=== PATIENT | female | born 1965 | race Caucasian/White ===

== ENCOUNTER 2017-11-18 21:56 | Emergency (ER) | payer OTHER ==
[~2017-11-18] VITALS: Ht 172.7 cm; Wt 99.8 kg
[~2017-11-18 21:56] MED LIST: ASPI81CH PO; Aspirin EC81 MG PO; CARV6.25 PO; Coreg12.5 MG PO; FURO20 PO; GLIM2 PO; LISI20 PO; Lasix20 MG PO; NITR.4SL SL; Pravastatin Sod40 MG PO; Prinivil10 MG PO
[2017-11-18] MEDS ORDERED: ALBU90OI (22:07)
[2017-11-18] MEDS ORDERED: Lasix20 MG PO (23:10)
[2017-11-18] MEDS ORDERED: Prinivil10 MG PO (23:10)
[2017-11-18] MEDS ORDERED: ALBU90OI PO (23:10)
[2018-08-12] MEDS ORDERED: CLOP75 PO (02:31)
[2018-08-12] MEDS ORDERED: ASPI81CH PO (02:31)
[2018-08-12] MEDS ORDERED: POTCHL20ER PO (02:32)
== END 2017-11-18 23:17 | disposition home or self-care (01) ==
LOC: ER 21:56
DX: Z76.0 Encounter for issue of repeat prescription (principal); Z79.899 Other long term (current) drug therapy; Z79.82 Long term (current) use of aspirin; I11.0 Hypertensive heart disease with heart failure; I50.9 Heart failure, unspecified; E11.9 Type 2 diabetes mellitus without complications; F17.200 Nicotine dependence, unspecified, uncomplicated
CPT/HCPCS: 99281

== ENCOUNTER 2017-12-15 11:47 | Emergency (ER) | payer OTHER ==
[~2017-12-15] VITALS: Ht 172.7 cm; Wt 90.7 kg
[~2017-12-15 11:47] MED LIST changes: +ALBU90OI; +ALBU90OI PO
[2017-12-15] MEDS ORDERED: CARV6.25 PO (12:27)
[2017-12-15] MEDS ORDERED: LISI20 PO (12:28)
[2017-12-15 12:38] LABS: BASOPHILS ABSOLUTE AUTO 0.09 K/mm3 (0.00-0.23); BASOPHILS PERCENT AUTO 1 % (0-2); EOSINOPHILS PERCENT AUTO 7 % (0-6); Hematocrit 42.2 % (33.0-51.0); IMMATURE GRAN ABSOLUTE AUTO 0.03 K/mm3 (0.00-0.10); IMMATURE GRAN PERCENT AUTO 0 % (0-1); LYMPHOCYTES ABSOLUTE AUTO 2.89 K/mm3 (0.84-5.20); LYMPHOCYTES PERCENT AUTO 32 % (21-46); MONOCYTES ABSOLUTE AUTO 0.44 K/mm3 (0.16-1.47); MONOCYTES PERCENT AUTO 5 % (4-13); Mean Corpuscular HGB Conc 35.5 g/dL (31.5-36.5); Mean Corpuscular Volume 82 fL (80-100); Mean Platelet Volume 10.9 fL (9.1-12.4); NEUTROPHILS ABSOLUTE AUTO 5.07 K/mm3 (1.96-9.15); NEUTROPHILS PERCENT AUTO 56 % (41-73); Platelet Count 240 K/mm3 (150-400); RDW Coefficient Variation 13.8 % (11.7-14.2); RDW Standard Deviation 40.9 fL (35.1-46.3); Red Blood Cell Count 5.18 M/mm3 (3.80-5.20); White Blood Cell Count 9.12 K/mm3 (4.00-11.30)
[2017-12-15 13:33] LABS: Alanine Aminotransfer (ALT/SGP 41 U/L (12-78); Albumin, Blood 3.3 g/dL (3.4-5.0); Albumin/Globulin Ratio 0.8 (0.8-1.8); Alk Phos 137 U/L (50-136); Anion Gap 14 mmol/L (6-16); Aspartate Aminotrans (AST/SGOT 20 U/L (12-37); Bilirubin, Total 0.6 mg/dL (0.1-1.0); Blood Urea Nitrogen 10 mg/dL (8-24); Bun/Creatinine Ratio 16.9 (12.0-20.0); CO2, Blood 22 mmol/L (21-32); Calcium, Blood 8.3 mg/dL (8.5-10.1); Chloride, Blood 97 mmol/L (98-108); Creatinine, Blood 0.59 mg/dL (0.40-1.00); Glomerular Filtration Rate >60 (60-); Glucose, Blood 342 mg/dL (70-99); Potassium, Blood 3.8 mmol/L (3.5-5.5); Sodium, Blood 133 mmol/L (136-145); Total Protein, Blood 7.3 g/dL (6.4-8.2)
[2017-12-15 14:37] LABS: Source, Urine Clean Catch
[2017-12-15 14:40] LABS: Appearance, Urine Clear (Clear); Bilirubin, Urine Neg (Neg); Blood, Urine 1+ (Neg); Color, Urine Yellow (P-Yellow); Glucose Qualitative, Urine 4+ (Neg); Ketones, Urine Neg (Neg); Leukocyte Esterase, Urine Neg (Neg); Nitrite, Urine Neg (Neg); Protein, Urine 3+ (Neg); Urobilinogen, Urine NORM (Normal)
[2017-12-15 14:48] LABS: Bacteria Not Seen /hpf; Squamous Epithelial Cells Few /hpf (Few)
[2017-12-15] MEDS ORDERED: Norco 5-325 Ta1 EACH PO (14:58)
[2018-08-12] MEDS ORDERED: CLOP75 PO (02:31)
[2018-08-12] MEDS ORDERED: ASPI81CH PO (02:31)
[2018-08-12] MEDS ORDERED: POTCHL20ER PO (02:32)
== END 2017-12-15 15:35 | disposition home or self-care (01) ==
LOC: ER 11:47
PROVIDERS: Emergency Medicine
DX: N83.202 Unspecified ovarian cyst, left side (principal); E11.65 Type 2 diabetes mellitus with hyperglycemia; I11.0 Hypertensive heart disease with heart failure; I50.9 Heart failure, unspecified; F17.210 Nicotine dependence, cigarettes, uncomplicated; Z79.899 Other long term (current) drug therapy; Z79.82 Long term (current) use of aspirin
CPT/HCPCS: 36415; 74177; 80053; 81001; 83690; 85025; 93005; 93010; 96360; 99284; J7030; Q9967

== ENCOUNTER → 2018-02-02 | Outpatient (CLI) | payer OTHER ==
[~2018-02-02] MED LIST changes: +CARV6.25; +Norco 5-325 Ta1 EACH PO
[2018-02-04 12:03] LABS: HPV Genotype 16 Not Detected (NOTDET); HPV Genotype 18 Not Detected (NOTDET)
[2018-02-09 07:42] LABS: HPV High Risk Other Not Detected (NOTDET)
== END | disposition home or self-care (01) ==
LOC: LAB SHORT 17:21 → OLS 17:21
PROVIDERS: Nurse Practitioner Women's Health
DX: Z12.4 Encounter for screening for malignant neoplasm of cervix (principal); N89.8 Other specified noninflammatory disorders of vagina
CPT/HCPCS: 87070; 87205; 87624; G0123

== ENCOUNTER 2018-04-15 20:52 | Emergency (ER) | payer OTHER ==
[~2018-04-15] VITALS: Ht 172.7 cm; Wt 86.2 kg
== END 2018-04-16 00:28 | disposition left against medical advice (07) ==
LOC: ER 20:52
DX: Z53.21 Procedure and treatment not carried out due to patient leaving prior to being seen by health care provider (principal)
CPT/HCPCS: 93005; 93010

== ENCOUNTER 2018-06-05 14:54 | Emergency (ER) | payer OTHER ==
[~2018-06-05] VITALS: Ht 172.7 cm; Wt 95.2 kg
[~2018-06-05 14:54] MED LIST changes: -CARV6.25
== END 2018-06-05 15:20 | disposition left against medical advice (07) ==
LOC: ER 14:54
DX: Z53.21 Procedure and treatment not carried out due to patient leaving prior to being seen by health care provider (principal)

== ENCOUNTER 2018-06-12 06:01 | Emergency (ER) | payer OTHER ==
[~2018-06-12] VITALS: Ht 172.7 cm; Wt 95.2 kg
[2018-06-12 06:23] LABS: BASOPHILS ABSOLUTE AUTO 0.04 K/mm3 (0.00-0.23); BASOPHILS PERCENT AUTO 1 % (0-2); EOSINOPHILS ABSOLUTE AUTO 0.58 K/mm3 (0.00-0.68); EOSINOPHILS PERCENT AUTO 7 % (0-6); Hematocrit 41.3 % (33.0-51.0); IMMATURE GRAN ABSOLUTE AUTO 0.02 K/mm3 (0.00-0.10); IMMATURE GRAN PERCENT AUTO 0 % (0-1); LYMPHOCYTES ABSOLUTE AUTO 3.57 K/mm3 (0.84-5.20); LYMPHOCYTES PERCENT AUTO 40 % (21-46); MONOCYTES ABSOLUTE AUTO 0.54 K/mm3 (0.16-1.47); MONOCYTES PERCENT AUTO 6 % (4-13); Mean Corpuscular HGB 28.9 pg (26.0-34.0); Mean Corpuscular HGB Conc 33.9 g/dL (31.5-36.5); Mean Corpuscular Volume 85 fL (80-100); Mean Platelet Volume 10.4 fL (9.1-12.4); NEUTROPHILS PERCENT AUTO 46 % (41-73); Platelet Count 278 K/mm3 (150-400); RDW Standard Deviation 43.3 fL (35.1-46.3); Red Blood Cell Count 4.85 M/mm3 (3.80-5.20); White Blood Cell Count 8.85 K/mm3 (4.00-11.30)
[2018-06-12 06:41] LABS: Alanine Aminotransfer (ALT/SGP 55 U/L (12-78); Alk Phos 122 U/L (50-136); Anion Gap 8 mmol/L (6-16); Aspartate Aminotrans (AST/SGOT 27 U/L (12-37); Bilirubin, Total 0.4 mg/dL (0.1-1.0); Blood Urea Nitrogen 22 mg/dL (8-24); Bun/Creatinine Ratio 34.4 (12.0-20.0); CO2, Blood 27 mmol/L (21-32); Calcium, Blood 8.5 mg/dL (8.5-10.1); Chloride, Blood 100 mmol/L (98-108); Creatinine, Blood 0.64 mg/dL (0.40-1.00); Glomerular Filtration Rate >60 (60-); Glucose, Blood 318 mg/dL (70-99); Potassium, Blood 3.6 mmol/L (3.5-5.5); Sodium, Blood 135 mmol/L (136-145); Troponin I <0.015 ng/mL (0.000-0.040)
[2018-06-12] MEDS ORDERED: K-Dur20 MEQ PO (08:31)
[2018-06-12] MEDS ORDERED: Coreg12.5 MG PO (08:31)
[2018-06-12] MEDS ORDERED: LISI20 PO (08:31)
[2018-06-12] MEDS ORDERED: Lasix40 MG PO (08:31)
== END 2018-06-12 09:30 | disposition home or self-care (01) ==
LOC: ER 06:01
PROVIDERS: Emergency Medicine
DX: I11.0 Hypertensive heart disease with heart failure (principal); I50.9 Heart failure, unspecified; Z91.19 Patient's noncompliance with other medical treatment and regimen; R07.89 Other chest pain; E11.65 Type 2 diabetes mellitus with hyperglycemia; F17.210 Nicotine dependence, cigarettes, uncomplicated
CPT/HCPCS: 36415; 71046; 80053; 83880; 84484; 85025; 93005; 93010; 96361; 96374; 99285-25; C9113; J7030

== ENCOUNTER 2018-06-28 00:08 | Inpatient (IN) | payer OTHER ==
[~2018-06-28] VITALS: Ht 172.7 cm; Wt 84.3 kg
[~2018-06-28 00:08] MED LIST changes: +K-Dur20 MEQ PO; +Lasix40 MG PO
[2018-06-28 00:18] LABS: PCO2 Arterial 41.8 mmHg (35-45); PO2 Arterial 51.1 mmHg (80-100); pH Blood Arterial 7.42 (7.35-7.45)
[2018-06-28 00:25] LABS: Calcium, Ionized (POC) 1.27 mmol/L (1.10-1.46); Chloride (POC) 101 mmol/L (98-108); Creatinine (POC) 0.6 mg/dL (0.6-1.0); Glucose (ISTAT POC) 336 mg/dL (70-99); Hemoglobin (POC) 14.3 g/dL (12.0-16.0); Potassium (POC) 4.1 mmol/L (3.5-5.5); Sodium (POC) 139 mmol/L (135-148); Total CO2 (POC) 29 mmol/L (21-32)
[2018-06-28 00:30] LABS: BASOPHILS ABSOLUTE AUTO 0.09 K/mm3 (0.00-0.23); BASOPHILS PERCENT AUTO 1 % (0-2); EOSINOPHILS ABSOLUTE AUTO 0.52 K/mm3 (0.00-0.68); EOSINOPHILS PERCENT AUTO 5 % (0-6); Hematocrit 40.4 % (33.0-51.0); Hemoglobin 13.8 g/dL (11.5-16.0); IMMATURE GRAN ABSOLUTE AUTO 0.04 K/mm3 (0.00-0.10); IMMATURE GRAN PERCENT AUTO 0 % (0-1); LYMPHOCYTES ABSOLUTE AUTO 3.25 K/mm3 (0.84-5.20); LYMPHOCYTES PERCENT AUTO 30 % (21-46); MONOCYTES ABSOLUTE AUTO 0.58 K/mm3 (0.16-1.47); MONOCYTES PERCENT AUTO 5 % (4-13); Mean Corpuscular HGB 28.8 pg (26.0-34.0); Mean Corpuscular HGB Conc 34.2 g/dL (31.5-36.5); Mean Corpuscular Volume 84 fL (80-100); Mean Platelet Volume 11.2 fL (9.1-12.4); NEUTROPHILS ABSOLUTE AUTO 6.32 K/mm3 (1.96-9.15); NEUTROPHILS PERCENT AUTO 59 % (41-73); Platelet Count 259 K/mm3 (150-400); RDW Coefficient Variation 13.7 % (11.7-14.2); RDW Standard Deviation 42.3 fL (35.1-46.3); Red Blood Cell Count 4.79 M/mm3 (3.80-5.20)
[2018-06-28 00:53] LABS: Ethanol (Alcohol), Blood, Med <3 mg/dL; Salicylate 3.3 mg/dL (2.8-20.0); Troponin I 0.249 ng/mL (0.000-0.040)
[2018-06-28 01:06] LABS: Alanine Aminotransfer (ALT/SGP 115 U/L (12-78); Albumin, Blood 3.5 g/dL (3.4-5.0); Albumin/Globulin Ratio 0.9 (0.8-1.8); Alk Phos 150 U/L (50-136); Anion Gap 9 mmol/L (6-16); Aspartate Aminotrans (AST/SGOT 72 U/L (12-37); Bilirubin, Total 0.4 mg/dL (0.1-1.0); Blood Urea Nitrogen 13 mg/dL (8-24); Bun/Creatinine Ratio 19.9 (12.0-20.0); CO2, Blood 24 mmol/L (21-32); Calcium, Blood 8.5 mg/dL (8.5-10.1); Chloride, Blood 104 mmol/L (98-108); Creatinine, Blood 0.65 mg/dL (0.40-1.00); Globulin, Blood 3.8 g/dL (2.2-4.0); Glomerular Filtration Rate >60 (60-); Glucose, Blood 341 mg/dL (70-99); Sodium, Blood 137 mmol/L (136-145); Total Protein, Blood 7.3 g/dL (6.4-8.2)
[2018-06-28 01:08] LABS: Acetaminophen, Random <2.0 ug/mL (10.0-30.0)
[2018-06-28] MEDS ORDERED: FURO20 PO (03:21)
[2018-06-28 03:36] LABS: Source, Urine Clean Catch
[2018-06-28 03:37] LABS: Bilirubin, Urine Neg (Neg); Blood, Urine 1+ (Neg); Glucose Qualitative, Urine 4+ (Neg); Ketones, Urine Neg (Neg); Leukocyte Esterase, Urine 1+ (Neg); Nitrite, Urine Neg (Neg); Protein, Urine 3+ (Neg); Specific Gravity, Urine 1.015 (1.003-1.022); Urobilinogen, Urine NORM (Normal)
[2018-06-28 03:58] LABS: U Amphetamine Screen DETECTED; U Barbituate Screen Not Detected; U Benzodiazapine Screen Not Detected; U Buprenorphine Screen Not Detected; U Cannabinoids Screen Not Detected; U Cocaine Screen Not Detected; U Methadone Screen Not Detected; U Methamphetamine Screen DETECTED; U Opiates Screen Not Detected; U Oxycodone Screen Not Detected; U Phencyclidine Screen Not Detected; U Propoxyphene Screen Not Detected
[2018-06-28 04:13] LABS: Appearance, Urine Clear (Clear); Color, Urine Yellow (P-Yellow)
[2018-06-28 04:14] LABS: Bacteria Few /hpf; Mucus Light (0-Heavy); Red Blood Cells, Urine 0-2 /hpf (0-2); Squamous Epithelial Cells Few /hpf (Few)
== END 2018-06-28 20:26 | disposition short-term general hospital (02) | DRG 229 ==
LOC: ER 00:08 → ICUE 00:09 → PCU 00:09 → ICUE 03:09
PROVIDERS: Emergency Medicine
PROC: 027004Z Dilation of Coronary Artery, One Artery with Drug-eluting Intraluminal Device, Open Approach (ICD-10-PCS; principal; 2018-06-28)
PROC: B240ZZ3 Ultrasonography of Single Coronary Artery, Intravascular (ICD-10-PCS; 2018-06-28)
DX: I21.4 Non-ST elevation (NSTEMI) myocardial infarction (principal); I13.0 Hypertensive heart and chronic kidney disease with heart failure and stage 1 through stage 4 chronic kidney disease, or unspecified chronic kidney disease; I50.20 Unspecified systolic (congestive) heart failure; F17.210 Nicotine dependence, cigarettes, uncomplicated; E11.9 Type 2 diabetes mellitus without complications; I25.2 Old myocardial infarction; G47.33 Obstructive sleep apnea (adult) (pediatric); F41.0 Panic disorder [episodic paroxysmal anxiety]; R45.1 Restlessness and agitation; F15.90 Other stimulant use, unspecified, uncomplicated; J44.9 Chronic obstructive pulmonary disease, unspecified
CPT/HCPCS: 36415; 36600; 71045; 71260; 80047; 80053; 81001; 81025; 82803; 82947; 83880; 84443; 84484; 85014; 85025; 85347; 85730; 87086; 92978; 93005; 93010; 93306; 93454; 94640; 94760; 96374; 99152; 99153; 99285-25; C1725; C1753; C1769; C1874; C1887; C1894; C9600; G0480; J1644; J1940; J2060; J2250; J3010; J3246; J7030; Q9967

== ENCOUNTER 2018-12-19 17:08 | Inpatient (IN) | payer OTHER ==
[~2018-12-19] VITALS: Ht 172.7 cm; Wt 90.7 kg
[~2018-12-19 17:08] MED LIST changes: +CLOP75 PO; +POTCHL20ER PO
[2018-12-19 18:06] LABS: BASOPHILS ABSOLUTE AUTO 0.06 K/mm3 (0.00-0.23); BASOPHILS PERCENT AUTO 1 % (0-2); EOSINOPHILS ABSOLUTE AUTO 0.63 K/mm3 (0.00-0.68); EOSINOPHILS PERCENT AUTO 8 % (0-6); Hematocrit 37.2 % (33.0-51.0); IMMATURE GRAN ABSOLUTE AUTO 0.02 K/mm3 (0.00-0.10); IMMATURE GRAN PERCENT AUTO 0 % (0-1); LYMPHOCYTES PERCENT AUTO 18 % (21-46); MONOCYTES PERCENT AUTO 7 % (4-13); Mean Corpuscular HGB 26.8 pg (26.0-34.0); Mean Corpuscular HGB Conc 32.3 g/dL (31.5-36.5); Mean Corpuscular Volume 83 fL (80-100); Mean Platelet Volume 10.8 fL (9.1-12.4); NEUTROPHILS ABSOLUTE AUTO 5.43 K/mm3 (1.96-9.15); NEUTROPHILS PERCENT AUTO 66 % (41-73); Platelet Count 322 K/mm3 (150-400); RDW Standard Deviation 45.9 fL (35.1-46.3); Red Blood Cell Count 4.48 M/mm3 (3.80-5.20); White Blood Cell Count 8.24 K/mm3 (4.00-11.30)
[2018-12-19 18:35] LABS: Alanine Aminotransfer (ALT/SGP 42 U/L (12-78); Albumin, Blood 3.4 g/dL (3.4-5.0); Albumin/Globulin Ratio 0.8 (0.8-1.8); Alk Phos 147 U/L (50-136); Anion Gap 5 mmol/L (6-16); Aspartate Aminotrans (AST/SGOT 28 U/L (12-37); Bilirubin, Total 0.4 mg/dL (0.1-1.0); Blood Urea Nitrogen 12 mg/dL (8-24); Bun/Creatinine Ratio 22.5 (12.0-20.0); CO2, Blood 32 mmol/L (21-32); Calcium, Blood 8.8 mg/dL (8.5-10.1); Chloride, Blood 102 mmol/L (98-108); Creatinine, Blood 0.53 mg/dL (0.40-1.00); Globulin, Blood 4.2 g/dL (2.2-4.0); Glomerular Filtration Rate >60 (60-); Glucose, Blood 149 mg/dL (70-99); Potassium, Blood 3.7 mmol/L (3.5-5.5); Sodium, Blood 139 mmol/L (136-145); Total Protein, Blood 7.6 g/dL (6.4-8.2)
[2018-12-20 01:36] LABS: Influenza A Negative (NEGATIVE); Influenza B Negative (NEGATIVE)
--- NOTE | 2018-12-20 17:11 | NUR ---
THIS PT WAS ADMITTED TO ROOM 301 AT 1330 ON 12/20/18. SHE WAS BROUGHT UP TO THE FLOOR BY WHEELCHAIR AND TRANSFERED FROM IT TO HER BED ON HER OWN. SHE STATES THAT SHE DOESNT FEEL ANY WEAKER THAN NORMAL. SHE HAS AN INSPIRATORY WHEEZE IN ALL LOBES. SHE IS ON 2L O2 VIA NC WHILE AT THE HOSPITAL, SHE IS ON RA AT HOME. SHE IS A TYPE 2 DIABETIC WHO REFUSES TO CHECK HER BLOOD SUGAR UNLESS SHE FEELS ITS ABSOLUTELY NECESSARY. SHE TAKES METFORMIN 5OOMG ONCE DAILY AT HOME EVEN THOUGH SHE IS PRESCRIBED TWICE THAT MUCH. SHE STATES THE BREATHING TREATMENTS HAVE HELPED WITH HER BREATHING. SHE IS A MOM AND . HER FAMILY CAME TO VISIT TODAY. SHE IS INDEPENDENT IN HER ROOM AND CAN MAKE HER NEEDS KNOWN. SHE IS ALERT AND ORIENTED AND COOPERATIVE WITH CARE. WILL CONTINUE TO MONITOR.
--- NOTE | 2018-12-21 04:29 | NUR ---
SHIFT SUMMARY PT AWAKE ON/OFF T/O NIGHT. AOX4. VSS. DENIES ANY PAIN OR N/V. REPORTS SOB @REST & HAS INSPIRATORY WHEEZES W/AUSCULTATION T/O LUNGS. SPO2 296% ON 4L NC. PT DENIES ANY SUPPLEMENTAL O2 USE @HOME. PT HAS ASKED FOR MULTIPLE BREATHING TX & REPORT THEY HELP HER BREATHING. CALL LIGHT IS IN REACH & I WCTM PT UNTIL DAY SHIFT RN ASSUMES CARE.
--- NOTE | 2018-12-21 06:29 | NUR ---
CHANGE IN PT BREATHING AT 0625 PT CALLED ME INTO ROOM ASKING HOW MANY MG LASIX SHE IS TAKING DAILY, INFORMED PT WE HAD HER ON 20MG DAILY. PT GOT AGITATED & ANXIOUS & STARTED ROCKING & YELLING, "I CAN'T BREATH! I CAN'T BREATH!" "NO WONDER I CAN'T BREATH, I NORMALLY TAKE 40MG DAILY." I ENCOURAGED PT TO TAKE SOME DEEP BREATHS & ASKED IF SHE FELT ANXIOUS. PT REPORTED DEEP BREATHING DOES NOT WORK & THAT SHE WAS "DROWNING" IN HER LUNGS FROM NOT GETTING THE PROPER LASIX SO "OF COURSE I AM GOING TO FEEL ANXIOUS IF I CAN'T BREATH." PT STATED I NEEDED TO GET A DR TO HER ROOM "RIGHT NOW" SO WE COULD GIVE HER SOME IV LASIX. I LISTENED TO LUNGS THEY HAD INSPIRATORY WHEEZES T/O, PT SPO2 >90% ON 3.5L O2. PT THEN TOOK OFF SUPPLEMENTAL O2 & ASKED HOW TO GET OUTSIDE, I GAVE DIRECTIONS & ASKED PT IF SHE WAS RETURNING BACK TO ROOM. PT REPORTED "I JUST NEED SOME FRESH AIR" & LEFT ROOM/FLOOR W/O OXYGEN. NOTIFIED CHARGE NURSE & I WILL NOTIFY ONCOMING NURSE.
--- NOTE | 2018-12-21 07:45 | NUR ---
PT YELLING AND SCREAMING IN ROOM "GET ME MY LASIX" REFUSING INSULIN AND ALL OTHER MEDS "UNTIL I GET MY 40MG OF LASIX" OFFERED 20MG OF LASIX PT REFUSED STATES "THAT'S NOT GOING TO DO ANYTHING". REPORTED TO DR. WHARTON.
--- NOTE | 2018-12-21 08:21 | NUR ---
PT REFUSING ALL CARE INCLUDING VITAL SIGNS, CBG'S. RR UNLABORED SPEAKING IN LONG SENTENCES, YELLING AT TIMES. NO PURSED LIP BREATHING OR INCREASED WOB. STATES "I WANT TO TALK TO A MD" REFUSING OFFER FOR CURRENT LASIX DOSE. DR. RUSSO AWARE.
--- NOTE | 2018-12-21 11:34 | NUR ---
UNABLE TO LOCATE PATIENT
--- NOTE | 2018-12-21 11:45 | NUR ---
SECURITY NOTIFIED. CARTON PACKAGING MACHINE OPERATOR NOT ABLE TO LOCATE PATIENT.
--- NOTE | 2018-12-21 18:30 | NUR ---
SHIFT SUMMARY PT LABILE AT TIMES; REFUSED SOME CARE THIS A.M. DEMANDING LASIX. COOPERATIVE DAY WENT ON. DOWN TO 2ND FLOOR SEVERAL TIMES FOR "FRESH AIR". INDEPENDENT IN ROOM. CBG'S WITH MEALS. DECREASED APPETITE. NEBS THROUGHOUT DAY. 02 SATS MAINTAINED IN HIGH 90'S ON 3-4L NC.
--- NOTE | 2018-12-22 03:50 | NUR ---
PT REFUSING PT REFUSING BLOOD SUGAR CHECK FOR 2100 INSULIN SS. REFUSED ASSOCIATE PROFESSOR OF PATHOLOGY AND REFUSED RN.
--- NOTE | 2018-12-22 04:59 | NUR ---
SHIFT SUMMARY PT VERY ANXIOUS AFFECT. GOES OUTSIDE IN W/C WITH HER KID PUSHING HER OUT THERE 2-3X T/O SHIFT. INDEPENDENT IN ROOM. 3.5L O2 NC. REFUSED BLOOD SUGAR CHECK AT 2100. REFUSED MILTON IBRAHIM. SHE SLEPT ON AND OFF T/O NOC. HER CHILDREN IN ROOM THROUGH NIGHT.
--- NOTE | 2018-12-22 11:20 | NUR ---
Pt. is lying in bed resting and do not need any visit now. wished pt. all the best
--- NOTE | 2018-12-22 17:06 | NUR ---
PT AOX4 AND VERY ANXIOUS. PT REFUSED MEDICATIONS WHEN OFFERED THE FIRST TIME IN THE AM. THEN BECAME AGITATED SHE WANTED LASIX WHICH DR MALDONADO HAD ORDERED, BUT WAS NOT READY TO PULL YET. AT THAT TIME SHE PULLED IV OUT OF HER ARM AND STATED SHE WOULD BE GOING HOME AMA. THIS COUNSELOR/ART THERAPIST WAS CALLED AND ONCE IN ROOM WAS ABLE TO TALK WITH PT AND CALM HER DOWN.PT TOOK MORING MEDICATIONS. PT HAS BEEN SLEEPING THE REST OF THE DAY AND REFUSED 1130 INSULIN TO TREAT CBG OF 305. PT CONTINUES TO NAP AND DOES NOT LIKE TO BE DISTURBED WILL CONTINUE TO MONITOR.
--- NOTE | 2018-12-23 04:21 | NUR ---
SHIFT SUMMARY A/O SHE LEFT US CHECK HER 2100 BLOOD SUGAR AND TOOK THE 7 UNITS OF INSULIN NO PROBLEM. INDEPENDENT IN ROOM SHE SLEPT THROUGH NIGHT. CHILD WITH HER AT BEDSIDE.
--- NOTE | 2018-12-23 11:10 | NUR ---
PATIENT WAS OFFERED A SHOWER AND ACCEPTED BUT THEN DECLINED WHEN SHE FOUND OUT SHE WAS BEING DISCHARGED AND SATED TO ME THAT SHE WANTS TO TAKE ONE AT HOME.
[2018-12-23] MEDS ORDERED: METF500C PO (13:19)
[2018-12-23] MEDS ORDERED: LEVO750 PO (13:19)
--- NOTE | 2018-12-23 13:19 | NUR ---
Pt. is in bed resting and do not need any visitor so I left her on her own
[2018-12-23] MEDS ORDERED: PRED20 PO ×2 (13:20→13:30)
[2018-12-23] MEDS ORDERED: ALBU90OI INH (13:25)
[2018-12-23] MEDS ORDERED: GLIM2 PO (13:27)
[2018-12-23] MEDS ORDERED: DULERA 100 MCG/13 GM INH (13:29)
--- NOTE | 2018-12-23 15:43 | NUR ---
DISCHARGE SUMMARY VENESSA REFUSED MORNING MEDS OR ASSESSMENT FOR FIRST COUPLE HOURS OF SHIFT, BUT ACQUIESED TO CARE MID MORNING WHEN CONVENIENT. SON AT BEDSIDE. CAME IN TO PICK HER UP. CASE MANAGEMENT DROPPED OFF APPOINTMENT THEY MADE FOR HER TO ESTABLISH CARE WITH PCP, THIS INFO GIVEN TO PT. PAPERWORK REVIEWED, PIV REMOVED. MEDS FAXED TO [facility] PER PT REQUEST. PT DIDN'T REQUIRE HOME OXYGEN. STRONGLY ENCOURAGED HER TO F/U WITH PCP ABOUT COPD LONG ACTING MEDICATION, SHE STATES SHE WILL DO THIS. DENIED PAIN. INDEPENDENT TO BATHROOM. TOOK MEDS PRESCRIBED, EXCEPT REFUSING PREDNISONE. LEFT VIA WHEELCHAIR
== END 2018-12-23 14:54 | disposition home or self-care (01) | DRG 189 ==
LOC: ER 17:08 → ERHOLD 21:17 → MEDS 12-20 13:05
PROVIDERS: Physician Assistant; ADMIT Hospitalist
DX: J96.01 Acute respiratory failure with hypoxia (principal); J45.901 Unspecified asthma with (acute) exacerbation; I50.32 Chronic diastolic (congestive) heart failure; J44.1 Chronic obstructive pulmonary disease with (acute) exacerbation; Z87.891 Personal history of nicotine dependence; I25.2 Old myocardial infarction; I25.10 Atherosclerotic heart disease of native coronary artery without angina pectoris; Z95.5 Presence of coronary angioplasty implant and graft; Z79.82 Long term (current) use of aspirin; E11.65 Type 2 diabetes mellitus with hyperglycemia; I11.0 Hypertensive heart disease with heart failure; Z79.84 Long term (current) use of oral hypoglycemic drugs
CPT/HCPCS: 36415; 71046; 80053; 82947; 83880; 84145; 85025; 87804; 93005; 93010; 94640; 94644; 94760; 96374; 96376; 99285-25; J1940; J2930

== ENCOUNTER 2019-05-28 11:52 | Emergency (ER) | payer OTHER ==
[~2019-05-28 11:52] MED LIST changes: +ALBU90OI INH; +DULERA 100 MCG/13 GM INH; +LEVO750 PO; +METF500C PO; +PRED20 PO
== END 2019-05-28 11:58 | disposition left against medical advice (07) ==
LOC: ER 11:52
DX: Z53.21 Procedure and treatment not carried out due to patient leaving prior to being seen by health care provider (principal)
CPT/HCPCS: 99281

== ENCOUNTER 2019-09-11 07:09 | Emergency (ER) | payer OTHER ==
[~2019-09-11] VITALS: Ht 172.7 cm; Wt 90.7 kg
[~2019-09-11 07:09] MED LIST changes: -ALBU90OI INH; +Aspir 8181 MG PO; -POTCHL20ER PO
[2019-09-11] MEDS ORDERED: Prinivil10 MG PO (09:11)
[2019-09-11] MEDS ORDERED: Coreg12.5 MG PO (09:11)
[2019-09-11] MEDS ORDERED: Lasix40 MG PO (09:11)
[2019-09-11] MEDS ORDERED: METF500C PO (09:11)
[2019-09-11] MEDS ORDERED: CLOP75 PO (09:11)
[2019-09-11] MEDS ORDERED: K-Dur20 MEQ PO (09:11)
[2019-09-11] MEDS ORDERED: ALBU90OI INH (09:11)
== END 2019-09-11 09:16 | disposition left against medical advice (07) ==
LOC: ER 07:09
DX: R06.02 Shortness of breath (principal); R60.0 Localized edema; I11.0 Hypertensive heart disease with heart failure; I50.9 Heart failure, unspecified; E11.9 Type 2 diabetes mellitus without complications; I25.2 Old myocardial infarction; F17.200 Nicotine dependence, unspecified, uncomplicated; Z76.0 Encounter for issue of repeat prescription; Z79.899 Other long term (current) drug therapy; Z79.02 Long term (current) use of antithrombotics/antiplatelets; Z79.82 Long term (current) use of aspirin; Z79.84 Long term (current) use of oral hypoglycemic drugs; Z79.52 Long term (current) use of systemic steroids
CPT/HCPCS: 71046; 93005; 93010; 99283-25

== ENCOUNTER 2019-10-07 05:41 | Emergency (ER) | payer OTHER ==
[~2019-10-07 05:41] MED LIST changes: +ALBU90OI INH
[2019-10-07] MEDS ORDERED: FURO40 PO (07:19)
[2019-10-07] MEDS ORDERED: METF500C PO (07:19)
[2019-10-07] MEDS ORDERED: POTCHL20ER PO (07:20)
[2019-10-07] MEDS ORDERED: ALBU2.5V5 NEB (07:21)
[2019-10-07] MEDS ORDERED: Coreg12.5 MG PO (07:21)
[2019-10-07] MEDS ORDERED: ALBU90OI INH (12:41)
[2019-10-07] MEDS ORDERED: LISI20 PO (12:43)
== END 2019-10-07 06:06 | disposition left against medical advice (07) ==
LOC: ER 05:41
DX: Z53.21 Procedure and treatment not carried out due to patient leaving prior to being seen by health care provider (principal)

== ENCOUNTER 2019-10-07 06:48 | Inpatient (IN) | payer OTHER ==
[~2019-10-07] VITALS: Ht 172.7 cm; Wt 83.5 kg
[2019-10-07] MEDS ORDERED: METF500C PO (07:19)
[2019-10-07] MEDS ORDERED: FURO40 PO (07:19)
[2019-10-07] MEDS ORDERED: POTCHL20ER PO (07:20)
[2019-10-07] MEDS ORDERED: Coreg12.5 MG PO (07:21)
[2019-10-07] MEDS ORDERED: ALBU2.5V5 NEB (07:21)
[2019-10-07 08:00] LABS: BASOPHILS ABSOLUTE AUTO 0.07 K/mm3 (0.00-0.23); BASOPHILS PERCENT AUTO 1 % (0-2); EOSINOPHILS ABSOLUTE AUTO 0.18 K/mm3 (0.00-0.68); EOSINOPHILS PERCENT AUTO 2 % (0-6); Hematocrit 48.7 % (33.0-51.0); Hemoglobin 14.7 g/dL (11.5-16.0); IMMATURE GRAN ABSOLUTE AUTO 0.04 K/mm3 (0.00-0.10); IMMATURE GRAN PERCENT AUTO 1 % (0-1); LYMPHOCYTES ABSOLUTE AUTO 1.48 K/mm3 (0.84-5.20); LYMPHOCYTES PERCENT AUTO 19 % (21-46); MONOCYTES ABSOLUTE AUTO 0.45 K/mm3 (0.16-1.47); MONOCYTES PERCENT AUTO 6 % (4-13); Mean Corpuscular HGB 25.1 pg (26.0-34.0); Mean Corpuscular HGB Conc 30.2 g/dL (31.5-36.5); Mean Corpuscular Volume 83 fL (80-100); Mean Platelet Volume 11.7 fL (9.1-12.4); NEUTROPHILS ABSOLUTE AUTO 5.69 K/mm3 (1.96-9.15); NEUTROPHILS PERCENT AUTO 72 % (41-73); Platelet Count 291 K/mm3 (150-400); RDW Coefficient Variation 17.2 % (11.7-14.2); RDW Standard Deviation 48.8 fL (35.1-46.3); Red Blood Cell Count 5.85 M/mm3 (3.80-5.20); White Blood Cell Count 7.91 K/mm3 (4.00-11.30)
[2019-10-07 08:19] LABS: Alanine Aminotransfer (ALT/SGP 25 U/L (12-78); Albumin, Blood 3.3 g/dL (3.4-5.0); Albumin/Globulin Ratio 0.8 (0.8-1.8); Alk Phos 162 U/L (50-136); Anion Gap 5 mmol/L (6-16); Aspartate Aminotrans (AST/SGOT 16 U/L (12-37); Bilirubin, Total 0.8 mg/dL (0.1-1.0); Blood Urea Nitrogen 16 mg/dL (8-24); Bun/Creatinine Ratio 21.9 (12.0-20.0); CO2, Blood 33 mmol/L (21-32); Calcium, Blood 8.8 mg/dL (8.5-10.1); Chloride, Blood 101 mmol/L (98-108); Creatinine, Blood 0.73 mg/dL (0.40-1.00); Globulin, Blood 3.9 g/dL (2.2-4.0); Glomerular Filtration Rate >60 (60-); Glucose, Blood 251 mg/dL (70-99); Potassium, Blood 3.6 mmol/L (3.5-5.5); Sodium, Blood 139 mmol/L (136-145); Total Protein, Blood 7.2 g/dL (6.4-8.2); Troponin I 0.034 ng/mL (0.000-0.040)
[2019-10-07] MEDS ORDERED: ALBU90OI INH (12:41)
[2019-10-07] MEDS ORDERED: LISI20 PO (12:43)
[2019-10-07 14:38] LABS: Troponin I 0.031 ng/mL (0.000-0.040)
[2019-10-07 14:40] LABS: Thyroid Stimulating Hormone 4.29 uIU/mL (0.360-4.800)
--- NOTE | 2019-10-07 16:20 | NUR ---
SHIFT SUMMARY: PT WAS ADMITTED THIS AFTER NOON FROM THE ED AND ASSISTED TO BED AND ORIENTED TO THE NURSING STAFF AND HER ROOM. SHE WAS VERY ANXIOUS AND UPSET UPON HER ARRIVAL. THE PT WAS REQUESTING TO GO OUTSIDE STATING SHE COULDNT CATCH HER BREATH. THIS NURSE EXPLAINED THAT WE WERE AWAITING DOCTOR ORDERS FOR HER TREATMENT PLAN AND THAT IT WAS SAFEST FOR HER TO STAY IN HER ROOM. THIS NURSE SET UP A FAN ON THE BEDSIDE TABLE AND TURNED ON THE AC IN THE ROOM. AT ONE POINT THE PT WALKED OUT IN THE [place] AND YELLED THAT SHE WAS GOING OUTSIDE BC SHE CANT BREATHE IN HERE AND SHE'S NOT WAITING FOR THE DOCTOR ANYMORE. CHARGE NURSE WAS NOTIFIED AND SO WAS THE HOSPITALIST. A FEW MINUTES LATER THE PT RETURNED TO HER ROOM AND WAS COMPLIANT WITH THE DOCTOR'S BEDSIDE ASSESSMENT. MEDS WERE GIVEN ORDERED. PT CONTINUES TO BE SOB ESPCIALLY WITH EXERTION. SHE IS ON 3 LPM OF O2 VIA N.C. LUNGS ARE CLEAR WITH DIM BASES. BP HAS BEEN HIGH SINCE ADMISSION BUT WAS MUCH MORE ELEVATED THIS AFTERNOON. DOCTOR WAS NOTIFIED AND STATED SHE WOULD ENTER PRN BP ORDERS. PT IS RESTING IN BED WITH HOB ELEVATED AND FAN ON. SHE CONTINUES TO BE SHORT OF BREATH. SHE IS ABLE TO MAKE HER NEEDS KNOWN AND USES CALL LIGHT WHEN NEEDED.
--- NOTE | 2019-10-08 04:43 | NUR ---
SHIFT SUMMARY PATIENT WAS EXPERIENCING ANXIETY DUE TO COMPLAINTS OF NOT BEING ABLE TO BREATHE TOWARDS THE BEGINNING OF THE SHIFT AND TAKING HER OXYGEN OFF. SHE IS CURRENTLY ON 3 LITERS OF O2 VIA NASAL CANULA. HAS BEEN ABLE TO SLEEP WELL ONCE SHE CALMED DOWN. IV PATENT AND FLUSHES. BED IN LOWEST POSITION WITH WHEELS LOCKED. CALL LIGHT AND BELONGINGS WITHIN REACH. REPORT GIVEN TO ONCSIMIN SALAZAR.
[2019-10-08 05:12] LABS: Hematocrit 47.8 % (33.0-51.0); Hemoglobin 14.7 g/dL (11.5-16.0); Mean Corpuscular HGB 25.2 pg (26.0-34.0); Mean Corpuscular HGB Conc 30.8 g/dL (31.5-36.5); Mean Corpuscular Volume 82 fL (80-100); Mean Platelet Volume 11.7 fL (9.1-12.4); Platelet Count 288 K/mm3 (150-400); RDW Coefficient Variation 16.9 % (11.7-14.2); RDW Standard Deviation 47.8 fL (35.1-46.3); Red Blood Cell Count 5.84 M/mm3 (3.80-5.20); White Blood Cell Count 9.08 K/mm3 (4.00-11.30)
[2019-10-08 05:42] LABS: Anion Gap 9 mmol/L (6-16); Blood Urea Nitrogen 16 mg/dL (8-24); Bun/Creatinine Ratio 30.1 (12.0-20.0); CO2, Blood 29 mmol/L (21-32); Calcium, Blood 9.1 mg/dL (8.5-10.1); Chloride, Blood 100 mmol/L (98-108); Creatinine, Blood 0.53 mg/dL (0.40-1.00); Glomerular Filtration Rate >60 (60-); Glucose, Blood 230 mg/dL (70-99); Magnesium, Blood 1.7 mg/dL (1.6-2.4); Phosphorus, Blood 3.5 mg/dL (2.5-4.9); Potassium, Blood 3.6 mmol/L (3.5-5.5); Sodium, Blood 138 mmol/L (136-145)
--- NOTE | 2019-10-08 06:33 | NUR ---
[facility] REPORTED THAT THE PATIENT HAD A RUN OF V TACH FOR 13 BEATS. A FULL SET OF VITALS WERE DONE AND BLOOD SUGAR TAKEN. REMINDED THE PATIENT TO WEAR HER OXYGEN SHE HAD TAKEN IT OFF.
--- NOTE | 2019-10-08 09:54 | NUR ---
PATIENT IS ALERT AND ORIENTED. PATIENT SAT UP ON THE SIDE OF THE BED FOR BREAKFAST. HER BP THIS AM WAS ELEVATED AT 183/105, BP MEDS GIVEN. HER BP WAS RECHECKED AT 09:50 WITH A READING OF 153/92. PATIENT IS CURRENTLY SLEEPING IN BED. SHE REFUSED A BREATHING TREATMENT THIS MORNING STATING THAT "THEY DONT WORK". IV LASIX GIVEN PER EMAR, PATIENT IS VOIDING IN THE HAT WITH STRICT I&O'S. WILL CONTINUE TO MONITOR.
[2019-10-08 13:54] LABS: International Normalized Ratio 1.11; Prothrombin Time Results 11.7 Sec (9.7-11.5)
--- NOTE | 2019-10-08 14:47 | NUR ---
ECHOCARDIOGRAM COMPLETE
--- NOTE | 2019-10-08 17:01 | NUR ---
PATIENT IS ALERT AND ORIENTED. PATIENT IS ON HEPARIN DRIP. SHE HAS BEEN COOPERATIVE WITH CARE TODAY, ONLY REFUSING RT. BREATHING TREATMENTS ARE NOW ORDERED PRN. PATIENT MAKES HER NEEDS KNOWN. SHE SLEPT MOST OF THE DAY. EASILY AWAKENED. WILL CONTINUE TO MONITOR
--- NOTE | 2019-10-09 07:37 | NUR ---
NO ACUTE CHANGES TO REPORT.
[2019-10-09 08:45] LABS: BASOPHILS ABSOLUTE AUTO 0.03 K/mm3 (0.00-0.23); BASOPHILS PERCENT AUTO 0 % (0-2); EOSINOPHILS ABSOLUTE AUTO 0.13 K/mm3 (0.00-0.68); EOSINOPHILS PERCENT AUTO 2 % (0-6); Hematocrit 45.6 % (33.0-51.0); IMMATURE GRAN ABSOLUTE AUTO 0.02 K/mm3 (0.00-0.10); IMMATURE GRAN PERCENT AUTO 0 % (0-1); LYMPHOCYTES ABSOLUTE AUTO 1.32 K/mm3 (0.84-5.20); LYMPHOCYTES PERCENT AUTO 20 % (21-46); MONOCYTES ABSOLUTE AUTO 0.36 K/mm3 (0.16-1.47); MONOCYTES PERCENT AUTO 5 % (4-13); Mean Corpuscular HGB 25.3 pg (26.0-34.0); Mean Corpuscular HGB Conc 30.7 g/dL (31.5-36.5); Mean Corpuscular Volume 83 fL (80-100); Mean Platelet Volume 11.5 fL (9.1-12.4); NEUTROPHILS ABSOLUTE AUTO 4.88 K/mm3 (1.96-9.15); NEUTROPHILS PERCENT AUTO 73 % (41-73); Platelet Count 262 K/mm3 (150-400); RDW Coefficient Variation 16.4 % (11.7-14.2); RDW Standard Deviation 48.2 fL (35.1-46.3); Red Blood Cell Count 5.53 M/mm3 (3.80-5.20); White Blood Cell Count 6.74 K/mm3 (4.00-11.30)
--- NOTE | 2019-10-09 17:42 | NUR ---
PATIENT A/OX4, [place] [facility] [place] GTT RUNNING AT 19 UNITS/HR, NEXT PTT AT 2100. PATIENT DENIES ANY PAIN OR DISCOMFORT. VSS, ON 3LO2 VIA NC. PATIENT SLEPT MOST OF THE SHIFT. WAKES FOR MEALS AND THAN RIGHT BACK TO SLEEP. 20G IV TO R AC WNL. ACHS BLOOD SUGARS, TOLERATING ADA DIET. SKIN INTACT. COOPERATIVE WITH CARE THIS SHIFT. CALLS APPROPRIATELY FOR ASSISTANCE.
--- NOTE | 2019-10-10 03:01 | NUR ---
ANXIOUS PT YELLING "I CAN'T BREATH, I CAN'T BREATH." FAMILY MEMBER COMES OUT OF ROOM & STATES PT NEEDS HELP. VS CHECKED & STABLE. TEMP 98.2, P 85, RR 20, BP 160/102, SPO2 @94%. PT ANXIOUS, SITTING ON SIDE OF BED, DENIES NEED FOR BREATHING TX OR O2. STATES SHE HAS A HEADACHE, GAVE TYLENOL PER ORDERS. WILL CONTINUE TO MONITOR.
[2019-10-10 05:27] LABS: BASOPHILS ABSOLUTE AUTO 0.05 K/mm3 (0.00-0.23); BASOPHILS PERCENT AUTO 1 % (0-2); EOSINOPHILS ABSOLUTE AUTO 0.18 K/mm3 (0.00-0.68); EOSINOPHILS PERCENT AUTO 3 % (0-6); Hematocrit 44.1 % (33.0-51.0); Hemoglobin 13.1 g/dL (11.5-16.0); IMMATURE GRAN ABSOLUTE AUTO 0.01 K/mm3 (0.00-0.10); IMMATURE GRAN PERCENT AUTO 0 % (0-1); LYMPHOCYTES ABSOLUTE AUTO 1.44 K/mm3 (0.84-5.20); LYMPHOCYTES PERCENT AUTO 21 % (21-46); MONOCYTES ABSOLUTE AUTO 0.45 K/mm3 (0.16-1.47); MONOCYTES PERCENT AUTO 6 % (4-13); Mean Corpuscular HGB 24.6 pg (26.0-34.0); Mean Corpuscular HGB Conc 29.7 g/dL (31.5-36.5); Mean Corpuscular Volume 83 fL (80-100); Mean Platelet Volume 11.5 fL (9.1-12.4); NEUTROPHILS ABSOLUTE AUTO 4.86 K/mm3 (1.96-9.15); NEUTROPHILS PERCENT AUTO 70 % (41-73); Platelet Count 246 K/mm3 (150-400); RDW Coefficient Variation 16.3 % (11.7-14.2); Red Blood Cell Count 5.33 M/mm3 (3.80-5.20); White Blood Cell Count 6.99 K/mm3 (4.00-11.30)
[2019-10-10 05:43] LABS: Anion Gap 6 mmol/L (6-16); Blood Urea Nitrogen 22 mg/dL (8-24); Bun/Creatinine Ratio 32.8 (12.0-20.0); CO2, Blood 33 mmol/L (21-32); Calcium, Blood 8.7 mg/dL (8.5-10.1); Chloride, Blood 101 mmol/L (98-108); Creatinine, Blood 0.67 mg/dL (0.40-1.00); Glomerular Filtration Rate >60 (60-); Glucose, Blood 237 mg/dL (70-99); Potassium, Blood 3.7 mmol/L (3.5-5.5); Sodium, Blood 140 mmol/L (136-145)
--- NOTE | 2019-10-10 06:15 | NUR ---
SHIFT SUMMARY AT 0450 I WAS NOTIFIED BY NAT FROM LAB THAT PT WAS "GOING OUTSIDE." I WENT INTO ROOM & PT WAS GONE. FOUND PT OVER BY ELEVATORS SITTING ON BENCH. PT & STATED IT WAS "TOO HOT IN THE ROOM," & SAID THE PT HAS DIFFICULTY BREATHING WHEN IT'S TOO HOT. I INFORMED THEM THE HEAT WAS TURNED OFF & THEY STATED IT WAS NOT. PT THEN ASKED ME IF SHE COULD "SLEEP IN THE [place]" ON THE BENCH, I STATED FOR SAFETY REASONS IT WAS NOT ALLOWED. SHE THEN INFORMED ME "I'M SLEEPING IN THE [place]" & YELLED @HER TO GO GET HER PILLOW. I INFORMED CHARGE NURSE SIERRA WERNER. WHILE WALKING BACK TO PT ROOM STATED "SHE GETS TESTY." CONVINCED PT TO RETURN TO ROOM. I ASKED IF PT FELT ANXIOUS, SHE ORIGIONALLY STATED NO BUT THEN STATED MAYBE SINCE EVERYTHING GOING ON W/POSSIBLY HAVING A BLOOD CLOT. VSS- AFEBRILE, SPO2 @94% ON RA, GAVE 2L SUPPLEMENTAL HUMIDIFIED O2 FOR COMFORT, PROVIDED ICE PACK TO HELP COOL DOWN. E/U RESPIRATIONS. LUNGS SOUND WHEEZY T/O. DENIES ANY NAUSEA, REPORTED MILD HEADACHE & MEDICATED W/TYLENOL. AOX4, IRRITABLE & ANXIOUS. HEPARIN INCREASED TO 23U/KG/HR. CBG @HS 273, PROVIDED COVERAGE PER ORDERS. TELE IN PLACE, RUNNING NSR @78. CALL LIGHT IN REACH.
--- NOTE | 2019-10-10 17:12 | NUR ---
PATIENT A/OX4, VERY SLEEPY THIS SHIFT. UP INDEPENDENTLY TO BSC. CONTINUES ON HEPARIN GTT AT 24 UNITS/HR. DENIES ANY PAIN OR DISCOMFORT. 20G IV TO R AC WNL. PATIENT MAINTAINING SATS ON RA. NO C/O SOB TODAY. CONTINUES ON 1500 FLUID RESTRICTION. ADA DIET, ACHS BLOOD SUGARS. CBG'S IN THE 200'S TODAY, CONTINUES ON SS INSULIN. AT BEDSIDE THROUGHOUT THE SHIFT. REPEAT ECHO DONE TODAY, NO REPORT POSTED YET.
--- NOTE | 2019-10-10 17:22 | NUR ---
Echocardiogram completed.
--- NOTE | 2019-10-11 06:26 | NUR ---
SHIFT SUMMARY PT IS A 54 Y/O FEMALE, ADMITTED FOR CHF EXACERBATION. SHE IS A&O X 4, WITH A HX OF ANXIETY. PT DENIED ANY COMPLAINTS OF ACUTE PAIN, NAUSEA OR SOB. SHE IS ON 3L OF O2 AT HOME AT BASELINE, BUT HAS BEEN SATTING MID 90S ON RA IN THE HOSPITAL. TELE SHOWED NSR IN THE 70S. ALL OTHER VITALS STABLE. NO ACUTE CHANGES IN PT CONDITION NOTED OVERNIGHT. WILL CONTINUE TO MONITOR AND TREAT PER EMAR UNTIL HAND OFF TO DAY SHIFT RN.
[2019-10-11 09:15] LABS: Albumin, Blood 3.1 g/dL (3.4-5.0); Anion Gap 3 mmol/L (6-16); Blood Urea Nitrogen 20 mg/dL (8-24); Bun/Creatinine Ratio 30.3 (12.0-20.0); CO2, Blood 34 mmol/L (21-32); Calcium, Blood 8.9 mg/dL (8.5-10.1); Chloride, Blood 100 mmol/L (98-108); Creatinine, Blood 0.66 mg/dL (0.40-1.00); Glomerular Filtration Rate >60 (60-); Glucose, Blood 210 mg/dL (70-99); Phosphorus, Blood 3.8 mg/dL (2.5-4.9); Potassium, Blood 4.4 mmol/L (3.5-5.5); Sodium, Blood 137 mmol/L (136-145)
--- NOTE | 2019-10-11 12:55 | NUR ---
Met pt lying in bed resting she report doing much better encouraged pt and offered prayers
--- NOTE | 2019-10-11 18:26 | NUR ---
PATIENT EDUCATION: PATIENT COUNSELED ON MEDICAL NEED TO ADHERE TO 1500ML/DAY FLUID RESTRICTION. PATIENT AND S/O INDICATED UNDERSTANDING.
--- NOTE | 2019-10-11 18:33 | NUR ---
SHIFT SUMMARY: NO ACUTE CHANGES TO REPORT THIS SHIFT. PT A&O; CALM; COOPERATIVE WITH CARE WITH EXCEPTION OF FLUID RESTRICTION (1500ML/DAY); PATIENT EDUCATED ON FLUID RESTRICTION. NO C/O PAIN THIS SHIFT. TELE IN PLACE; SR @ 72 PER DIRECTOR OF EVENT SALES DURING MORNING ASSESSMENT; PERICARDIAL MASS DETECTED ON ECHO. RESPS E/U ON ROOM AIR; PT ON O2 @ 3L @ HOME. DIURESIS CONTINUING. WCTM.
--- NOTE | 2019-10-12 04:47 | NUR ---
SHIFT SUMMARY PT HAS APPEARED TO BE SLEEPING T/O THE EVENING AND NIGHT. SHE WAS AWAKE FOR A SHORT TIME WHILE HER SPOUSE BROUGHT IN THEIR DOG. OTHERWISE, SHE WANTED TO BE LEFT ALONE. SHE LIKES HER ROOM DARK AND QUIET. NO C/O PAIN OR DISCOMFORT.
[2019-10-12 04:50] LABS: Albumin, Blood 3.3 g/dL (3.4-5.0); Anion Gap 6 mmol/L (6-16); Blood Urea Nitrogen 27 mg/dL (8-24); CO2, Blood 33 mmol/L (21-32); Chloride, Blood 99 mmol/L (98-108); Creatinine, Blood 0.75 mg/dL (0.40-1.00); Glomerular Filtration Rate >60 (60-); Glucose, Blood 217 mg/dL (70-99); Phosphorus, Blood 3.6 mg/dL (2.5-4.9); Potassium, Blood 4.4 mmol/L (3.5-5.5); Sodium, Blood 138 mmol/L (136-145)
--- NOTE | 2019-10-12 06:00 | NUR ---
ADDENDUM PATIENT WAS DISCOVERED VOMITING IN HER ROOM AT APPROX 0520. SHE NEEDED ASSISTANCE GETTING CLEANED UP BUT DIDN'T WANT ANYTHING FOR NAUSEA. HER STOMACH SEEMS TO HAVE SETTLED DOWN NOW.
--- NOTE | 2019-10-12 07:00 | NUR ---
ASSUMED CARE OF PT- BEDSIDE REPORT COMPLETED WITH NIGHT RN. PT HAS STARTED VOMITING IN THE NIGHT. PT HAS REFUSED NAUSEA MEDS AND AT SHIFT CHANGE ASKED STAFF TO LEAVE THE ROOM TO DO REPORT. PT ALERT AND ORIENTED, INDEPENDENT IN THE ROOM. PER REPORT. PT AND SPOUSE ARE HOMELESS (PER PT SPOUSE) AT THIS TIME. PT HAS A Hx OF DRUG USE. HOWEVER DENIES USE OF ANY ILLICIT DRUGS. PT IS REFUSING NAUSEA MEDS DESPITE THE VOMITING. PT APPEARS TO FEEL MISSERABLE.
--- NOTE | 2019-10-12 08:30 | NUR ---
PT IN BED VOMITING IN THE TRASH CAN. DR CAME TO SEE HER AND IS AWARE OF THE VOMITING. PT TOLD DR ALL THAT WORKS FOR THE NAUSEA IS PEPTO. NEW ORDER FOR LIQUID PEPTO RECIEVED. PT STILL REFUSING NAUSEA MEDS OTHERWISE. WILL MEDICATE WHEN MED IS RECIEVED FROM PHARMACY.
--- NOTE | 2019-10-12 10:00 | NUR ---
PT STILL VOMITING AFTER MORNING MEDS WERE TAKEN. DESPITE RECIEVING PEPTO. PT STILL REFUSING NAUSEA MEDS. PT ALSO HAD A URINE ACCIDENT ON HER WAY TO THE BATHROOM URINE TRAIL ON THE FLOOR FROM THE BED TO THE BATHROOM. CALLED HOUSE KEEPING TO CLEAN.
--- NOTE | 2019-10-12 11:34 | NUR ---
Pt. is in bed resting and is doing much better encouraged pt. and prayed for pt.
--- NOTE | 2019-10-12 15:30 | NUR ---
PT FINALLY AGREED TO TAKE IV ZOFRAN. GAVE THE DOSE THEN HER SO TOOK HER OUT IN A WC FOR A STROLL.
--- NOTE | 2019-10-12 17:50 | NUR ---
CALLED DR MALDONADO. DISCUSSED WITH ON NORMAL ROUNDS PT LUCI. TOLD TO GIVE IT IV THIS MORNING THEN IT WOULD BE CHANGED TO PO. CALLED DR VERMA STILL ORDERED IV. ORDER RECIEVED TO DC IV LASIX AT THIS TIME.
--- NOTE | 2019-10-12 18:33 | NUR ---
SHIFT SUMMARY- PT ALERT AND ORIENTED, PT HAS HAD NAUSEA AND VOMITING T/O THE DAY AND DECLINED ALL NAUSEA MEDICATIONS UNTIL 0. PT WAS MEDICATED WITH IV ZOFRAN, WENT OUTSIDE TO WITH HER SO FOR 5 MINUTES RETURNED SMELLING OF SMOKE (PT STATED SHE WENT OUT TO SEE HER SON). PT HAS BEEN HUNGRY SINCE ABOUT 30 MINUTES AFTER ZOFRAN AND HER WALK (PT WENT IN A WC WITH SO PUSHING). PT ATE 100% OF DINNER AND STATES NO NAUSEA AT THIS TIME. PT HAS SL IV IN THE RIGHT AC THAT APPEARS BLOODY, IT FLUSHES WELL AND DOES NOT LEAK. IV LASIX WAS DC'D THIS EVENING. NO C/O PAIN T/O THE SHIFT. PT PLACES NC ON SHE FEELS SHE NEEDS IT. PT CURRENTLY IN BED, HER CALL LIGHT IN REACH, BSC AT THE BEDSIDE FOR PT SAFETY (SEE PREVIOUS NOTES FOR DETAILS) PT HAD URINE ACCIDENT EARLIER.
[2019-10-13 05:27] LABS: Anion Gap 6 mmol/L (6-16); Blood Urea Nitrogen 29 mg/dL (8-24); Bun/Creatinine Ratio 39.6 (12.0-20.0); CO2, Blood 32 mmol/L (21-32); Calcium, Blood 7.8 mg/dL (8.5-10.1); Chloride, Blood 96 mmol/L (98-108); Creatinine, Blood 0.73 mg/dL (0.40-1.00); Glomerular Filtration Rate >60 (60-); Glucose, Blood 202 mg/dL (70-99); Potassium, Blood 3.4 mmol/L (3.5-5.5); Sodium, Blood 134 mmol/L (136-145)
--- NOTE | 2019-10-13 07:19 | NUR ---
ASSUMED CARE OF PT- BEDSIDE REPORT COMPLETED WITH NIGHT RN NAVEED. PT ALERT AND ORIENTED, INDEPENDENT IN THE ROOM. PER REPORT FROM NIGHT RN, PT SLEPT THROUGH THE NIGHT AND HAD NO FURTHER BOUTS OF NAUSEA OR VOMITING. PT SO IS AT THE BEDSIDE, PT IN BED SLEEPING AT THE TIME OF REPORT, CALL LIGHT IN REACH, NO S&S OF DISTRESS AT THIS TIME WILL CTM.
[2019-10-13] MEDS ORDERED: Isosorbide Mono30 MG PO (10:01)
[2019-10-13] MEDS ORDERED: BISMUTH SU PO (10:01)
[2019-10-13] MEDS ORDERED: SPIR25 PO (10:04)
[2019-10-13] MEDS ORDERED: METO50 PO (10:04)
[2019-10-13] MEDS ORDERED: POTA10T PO (10:04)
--- NOTE | 2019-10-13 10:50 | NUR ---
PT TO BE DISCHARGED TODAY AFTER HOME O2 EVAL. RT WENT IN TO DO HOME O2 EVAL AND THE PT BECAME IRRITABLE AND TOLD HER SHE IS NOT GOING TO GO FOR A WALK WITH HER. RT REQUESTED THAT RN SPEAK WITH THE PT. PT BECAME MORE IRRITABLE STATING SHE WANTS TO SLEEP, SHE WANTS TO BE LEFT ALONE. PT HAS DISCHARGE PENDING WALK OX. PT STATED SHE DOES NOT HAVE HOME O2, SHE HAS NEVER NEEDED HOME O2, SHE DOESNT WANT HOME O2 AND SHE REFUSES TO USE HOME O2. CALLED DR MALDONADO AND EXPLAINED THE CONVERSATION WITH HIM. HE IS AWARE PT ADIMANTLY REFUSING HOME O2 EVAL WELL THE O2. HOME O2 EVAL CANCELLED PT OK TO DISCHARGE.
--- NOTE | 2019-10-13 13:39 | NUR ---
DISCHARGE NOTE- PT WAS GIVEN VERBAL AND WRITTEN DISCHARGE INSTRUCTIONS AND ACKNOWLEDGED UNDERSTANDING OF THEM. NO FURTHER QUESTIONS AT THE TIME OF DISCHARGE, CONTACT INFO PROVIDED IF QUESTIONS SHOULD ARRISE. PT DECLINED ESCORT AND WAS TAKEN OUT VIA W/C BY HER SO.
== END 2019-10-13 13:40 | disposition home or self-care (01) | DRG 291 ==
LOC: ER 06:48 → MEDS 06:49 → ENPENDDIS 10-13 09:29 → MEDS 10-13 13:40
PROVIDERS: Emergency Medicine; Internal Medicine; ADMIT Internal Medicine
DX: I11.0 Hypertensive heart disease with heart failure (principal); J96.01 Acute respiratory failure with hypoxia; I31.9 Disease of pericardium, unspecified; I50.43 Acute on chronic combined systolic (congestive) and diastolic (congestive) heart failure; J45.909 Unspecified asthma, uncomplicated; I25.10 Atherosclerotic heart disease of native coronary artery without angina pectoris; E11.9 Type 2 diabetes mellitus without complications; F19.10 Other psychoactive substance abuse, uncomplicated; E66.9 Obesity, unspecified; Z95.5 Presence of coronary angioplasty implant and graft; Z79.02 Long term (current) use of antithrombotics/antiplatelets; Z79.899 Other long term (current) drug therapy; Z87.891 Personal history of nicotine dependence; Z79.82 Long term (current) use of aspirin; Z79.84 Long term (current) use of oral hypoglycemic drugs
CPT/HCPCS: 36415; 71046; 71260; 80048; 80053; 80069; 82947; 83735; 83880; 84100; 84443; 84484; 85025; 85027; 85379; 85610; 85730; 87040; 93005; 93010; 93306; 93308; 93321; 93970; 94760; 96374; 99285-25; A9270; J0360; J1644; J1650; J1940; J2405; Q9967

== ENCOUNTER 2019-12-30 08:46 | Inpatient (IN) | payer OTHER ==
[~2019-12-30] VITALS: Ht 167.6 cm; Wt 101.5 kg
[~2019-12-30 08:46] MED LIST changes: -Aspir 8181 MG PO; +BISMUTH SU PO; +POTCHL20ER PO
[2019-12-30 09:46] LABS: BASOPHILS ABSOLUTE AUTO 0.06 K/mm3 (0.00-0.23); BASOPHILS PERCENT AUTO 1 % (0-2); EOSINOPHILS PERCENT AUTO 1 % (0-6); Hematocrit 50.3 % (33.0-51.0); Hemoglobin 15.1 g/dL (11.5-16.0); IMMATURE GRAN ABSOLUTE AUTO 0.03 K/mm3 (0.00-0.10); IMMATURE GRAN PERCENT AUTO 0 % (0-1); LYMPHOCYTES ABSOLUTE AUTO 1.75 K/mm3 (0.84-5.20); LYMPHOCYTES PERCENT AUTO 22 % (21-46); MONOCYTES ABSOLUTE AUTO 0.48 K/mm3 (0.16-1.47); MONOCYTES PERCENT AUTO 6 % (4-13); Mean Corpuscular HGB 24.7 pg (26.0-34.0); Mean Corpuscular Volume 82 fL (80-100); Mean Platelet Volume 11.5 fL (9.1-12.4); NEUTROPHILS ABSOLUTE AUTO 5.38 K/mm3 (1.96-9.15); NEUTROPHILS PERCENT AUTO 69 % (41-73); Platelet Count 231 K/mm3 (150-400); RDW Coefficient Variation 18.2 % (11.7-14.2); RDW Standard Deviation 51.7 fL (35.1-46.3); Red Blood Cell Count 6.12 M/mm3 (3.80-5.20)
[2019-12-30 10:09] LABS: Alanine Aminotransfer (ALT/SGP 29 U/L (12-78); Albumin/Globulin Ratio 0.7 (0.8-1.8); Alk Phos 216 U/L (50-136); Anion Gap 6 mmol/L (6-16); Aspartate Aminotrans (AST/SGOT 16 U/L (12-37); Bilirubin, Total 0.8 mg/dL (0.1-1.0); Blood Urea Nitrogen 21 mg/dL (8-24); Bun/Creatinine Ratio 26.4 (12.0-20.0); CO2, Blood 31 mmol/L (21-32); Calcium, Blood 8.6 mg/dL (8.5-10.1); Chloride, Blood 101 mmol/L (98-108); Globulin, Blood 4.1 g/dL (2.2-4.0); Glomerular Filtration Rate >60 (60-); Glucose, Blood 305 mg/dL (70-99); Potassium, Blood 3.8 mmol/L (3.5-5.5); Sodium, Blood 138 mmol/L (136-145); Total Protein, Blood 7.1 g/dL (6.4-8.2)
[2019-12-30 10:11] LABS: Troponin I 0.058 ng/mL (0.000-0.040)
[2019-12-30] MEDS ORDERED: Prinivil10 MG PO (12:11)
[2019-12-30] MEDS ORDERED: METF500 PO (12:12)
[2019-12-30] MEDS ORDERED: Aspir 8181 MG PO (12:12)
[2019-12-30] MEDS ORDERED: PLAVIX75 MG PO (12:13)
[2019-12-30] MEDS ORDERED: SPIR25 PO (12:14)
[2019-12-30] MEDS ORDERED: ALBU90OI INH (12:14)
[2019-12-30] MEDS ORDERED: Isosorbide Mono30 MG PO (12:14)
[2019-12-30] MEDS ORDERED: METO50 PO (12:15)
[2019-12-30] MEDS ORDERED: FUROSEMIDE20 MG PO (12:16)
[2019-12-30] MEDS ORDERED: Accuneb0.63 MG/3 NEB (12:17)
[2019-12-30] MEDS ORDERED: POTA10T PO (12:17)
[2019-12-30] MEDS ORDERED: FUROSEMIDE40 MG PO (12:18)
[2019-12-30] MEDS ORDERED: BASAGLAR K100 UNIT/2 SC (12:18)
[2019-12-30] MEDS ORDERED: CARV25 PO (12:25)
--- NOTE | 2019-12-30 14:48 | NUR ---
U/SOUND CALLED WITH PRELIM VERBAL REPORT NEG SVT AND DVT. CALLED DR MALDONADO. NO ORDERS
--- NOTE | 2019-12-30 16:08 | NUR ---
PT IN ROOM. LIGHTLY CRYING. STATES PAIN IN LEGS. REFUSED ANY PAIN MEDS. REPORTED TO DR. MALDONADO. NO NEW PAIN ORDERS, PT REFUSING. RE GABBY. HAS NOT BEEN AVAIL FROM PHARMACY. WHAT ABOUT NOW DOSE ORDERED? CANCEL NOW DOSE. CHANGES TO 15 U EVENING ONLY. START TONITES DOSE EARLY, JACKY. THEN CONTINUE DAILY IN [place]. WILL MAKE CHANGES .
--- NOTE | 2019-12-30 16:49 | NUR ---
CALLED DR ERICA LOZADA BP COREG GIVEN. RE CBG. 403. KEEP ORDERS SAME. 12 U MED S/S. NO NEW ORDERS
--- NOTE | 2019-12-30 19:28 | NUR ---
PT ADMIT DONE. PT SOME ANX, BUT DOIING WELL . NEW CBG AND INSULIN ORDERS MADE. PT RESTING AT THIS TIME. BED IN LOW POSITION,C ALL LITE IN REACH, CALS APROP INDEPENDANT ON ROOM.
[2019-12-31 06:10] LABS: Anion Gap 4 mmol/L (6-16); Blood Urea Nitrogen 28 mg/dL (8-24); Bun/Creatinine Ratio 37.2 (12.0-20.0); CO2, Blood 32 mmol/L (21-32); Calcium, Blood 8.6 mg/dL (8.5-10.1); Chloride, Blood 99 mmol/L (98-108); Creatinine, Blood 0.75 mg/dL (0.40-1.00); Glomerular Filtration Rate >60 (60-); Glucose, Blood 282 mg/dL (70-99); Potassium, Blood 4.3 mmol/L (3.5-5.5); Sodium, Blood 135 mmol/L (136-145)
--- NOTE | 2019-12-31 06:11 | NUR ---
SHIFT SUMMARY PT COOPERATIVE WITH CARE. SHE IS ANXIOUS ON AND OFF THIS NIGHT. VSS. SHE HAD RELATED EARLY THIS NIGHT THAT HER LEGS WERE UNCOMFORTABLE BUT DID NOT WANT PAIN MEDS. SLEPT MUCH OF THEN NIGHT. NO ACUTE CHANGES NOTED. WILL CONTINUE TO MONITOR.
--- NOTE | 2019-12-31 12:36 | NUR ---
SHIFT SUMMARY PT IS A/O X 4 WITH NO C/O PAIN. SHE DOES APPEAR ANXIOUS AND SOB THIS MORNING ON ASSESSMENT AND HAS HERSELF PROPPED UP ON PILLOWS. AFTER GIVING LASIX ORDERED HER BREATHING IMPROVED SIGNIFICANTLY. REDNESS AND SWELLING REMAIN TO BLE BUT THE REDNESS IS MORE PRONOUNCED IN THE RIGHT LEG. DURING ROUNDS WITH THE DOCTOR THE PT EXPRESSED CONCERN ABOUT THE REDNESS IN HER LEGS AND STATED "IM NOT LEAVING THIS TIME UNTIL ITS BETTER" THE DOCTOR EXPLAINED THAT HE WOULD PRESCRIBE KEFLEX AND THE PT BECAME AGITATED AND STATED THAT IT "WOULD NOT WORK FOR ME" THE DOCTOR CONTINUED TO EDUCATE PT ON THE PROPER ABO FOR HER SYMPTOMS AND THE PT WENT ON TO SAY THAT IT "WILL NOT WORK AND I WONT TAKE IT", PT WAS NOTIFIED THAT SHE DOES HAVE THE RIGHT TO REFUSE. THEN THE PT STATED "WELL IM ALLERGIC TO KEFLEX NOW, SO IM NOT TAKING IT" THE CHARGE NURSE WAS NOTIFIED OF THIS INTERCTION. PT HAS BEEN RESTING IN BED. SHE HAS HAD NO OTHER C/O THIS MORNING. PT SELF AMBULATES TO THE TOILET AND HAS A GOOD APPETITE. PT IS ABLE TO MAKE HER NEEDS KNOWN AND CALLS FOR HELP WHEN NEEDED. CALL LIGHT IS IN REACH.
--- NOTE | 2019-12-31 15:46 | NUR ---
ASSUMED CARE OF PATIENT APPROX 1400 FROM NOVA SALAZAR. UPON INTRODUCING MYSELF PATIENT WAS VERY UPSET. SHE WAS DEMANDING ANTIBIOTICS. SPOKE WITH DR RUSSO WHO PLACED ORDERS FOR DOXYCYCLINE SINCE PATIENT WAS REFUSING KEFLEX. SHE STARTED TO REFUSE THE DOXYCYCLINE FROM ME AND THREATENED TO LEAVE AMA. I EXPLAINED TO HER THAT SHE HAS THE RIGHT TO REFUSE AND THE RIGHT TO LEAVE AMA. SHE BECAME MORE UPSET SAYING "I AM NOT LEAVING THIS PLACE UNTIL YOU FIX MY CELLULITIS" SHE AGREED TO TAKE THE DOXYCYCLINE AT THIS TIME. PATIENT ALSO REPORTING THAT THE IV LASIX SHE RECIEVED THIS MORNING HAS ONLY MADE HER BREATHING WORSE HOWEVER WITHIN THE NEXT FEW MINUTES OF OUR CONVERSATION SHE REPORTED THAT SHE HAD FELT BETTER AND WOULD LIKE TO STILL TAKE IT SCHEDULED THIS EVENING. PATIENT HAD BEEN WEARING 4L 02 ACCORDING TO NOVA SALAZAR BUT HAD NOT BEEN WEARING CONSISTENTLY. SHE WAS NOT WEARING AT THIS TIME AND I ASKED HER IF SHE WOULD LIKE TO WEAR IT. SHE PUT IT ON AT 2L. AT THE TIME OF VS AT 1500 SHE WAS 95 ON RA.
--- NOTE | 2019-12-31 16:28 | NUR ---
PATIENT DECIDED TO LEAVE AMA. SHE WAS UNWILLING TO ACCEPT ANY FURTHER EDUCATING. ATTEMPTED TO EDUCATE ON HER LASIX AND ABX AND REASON FOR ADMISSION AND SHE GOT IRRITABLE. SHE HAD ALREADY GOTTEN DRESSED AND PULLED OUT HER IV WHEN I ENTERED THE ROOM. NOTIFIED DR RUSSO. EDUCATED HER ON THE RISKS OF LEAVING AMA. SHE ACKNOWLEDGED THE RISKS. PATIENT LEFT VIA PRIVATE VEHICLE
== END 2019-12-31 16:28 | disposition left against medical advice (07) | DRG 291 ==
LOC: ER 08:46 → MEDS 08:47
PROVIDERS: Emergency Medicine; ADMIT Internal Medicine
DX: I11.0 Hypertensive heart disease with heart failure (principal); J96.01 Acute respiratory failure with hypoxia; I31.9 Disease of pericardium, unspecified; I50.23 Acute on chronic systolic (congestive) heart failure; J45.909 Unspecified asthma, uncomplicated; I25.10 Atherosclerotic heart disease of native coronary artery without angina pectoris; E11.9 Type 2 diabetes mellitus without complications; I87.2 Venous insufficiency (chronic) (peripheral); Z53.29 Procedure and treatment not carried out because of patient's decision for other reasons; F90.9 Attention-deficit hyperactivity disorder, unspecified type; Z95.5 Presence of coronary angioplasty implant and graft; Z87.891 Personal history of nicotine dependence; Z79.82 Long term (current) use of aspirin; Z79.84 Long term (current) use of oral hypoglycemic drugs; Z79.02 Long term (current) use of antithrombotics/antiplatelets; I25.2 Old myocardial infarction
CPT/HCPCS: 36415; 71046; 80048; 80053; 82947; 83880; 84484; 85025; 93005; 93010; 93970; 96374; 99285-25; A9270-GY; J1650; J1940

== ENCOUNTER 2020-02-09 00:39 | Day surgery (SDC) | payer OTHER ==
[~2020-02-09 00:39] MED LIST changes: +Accuneb0.63 MG/3 NEB; +Aspir 8181 MG PO; +BASAGLAR K100 UNIT/2 SC; +CARV25 PO; +FUROSEMIDE20 MG PO; +FUROSEMIDE40 MG PO; +Isosorbide Mono30 MG PO; +METF500 PO; +METO50 PO; +PLAVIX75 MG PO; +POTA10T PO; +SPIR25 PO
== END 2020-02-09 22:58 | disposition home or self-care (01) ==
LOC: WOUND 00:39
DX: E11.622 Type 2 diabetes mellitus with other skin ulcer (principal); L97.812 Non-pressure chronic ulcer of other part of right lower leg with fat layer exposed; I83.009 Varicose veins of unspecified lower extremity with ulcer of unspecified site; I11.0 Hypertensive heart disease with heart failure; I50.9 Heart failure, unspecified; Z87.891 Personal history of nicotine dependence; J44.9 Chronic obstructive pulmonary disease, unspecified; E11.40 Type 2 diabetes mellitus with diabetic neuropathy, unspecified; Z79.4 Long term (current) use of insulin; Z79.899 Other long term (current) drug therapy; E11.51 Type 2 diabetes mellitus with diabetic peripheral angiopathy without gangrene
CPT/HCPCS: G0463

== ENCOUNTER 2020-02-20 00:37 | Day surgery (SDC) | payer OTHER | END 2020-02-20 22:37 | disposition home or self-care (01) | LOC: WOUND 00:37 | DX: E11.622 Type 2 diabetes mellitus with other skin ulcer (principal); L97.812 Non-pressure chronic ulcer of other part of right lower leg with fat layer exposed; E11.51 Type 2 diabetes mellitus with diabetic peripheral angiopathy without gangrene; I73.9 Peripheral vascular disease, unspecified; I83.009 Varicose veins of unspecified lower extremity with ulcer of unspecified site; Z79.899 Other long term (current) drug therapy; Z79.51 Long term (current) use of inhaled steroids | CPT/HCPCS: G0463 ==

== ENCOUNTER 2021-09-30 03:56 | Inpatient (IN) | payer OTHER ==
[~2021-09-30] VITALS: Ht 167.6 cm; Wt 81.7 kg
[~2021-09-30 03:56] MED LIST changes: -BASAGLAR K100 UNIT/2 SC; +BASAGLAR K100 UNIT/3; +NOVOLOG FL100 UNIT/3; -POTA10T PO; +Silvadene20 GM TOP
[2021-09-30 04:48] LABS: BASOPHILS ABSOLUTE AUTO 0.06 K/mm3 (0.00-0.23); BASOPHILS PERCENT AUTO 1 % (0-2); EOSINOPHILS ABSOLUTE AUTO 0.14 K/mm3 (0.00-0.68); EOSINOPHILS PERCENT AUTO 1 % (0-6); Hematocrit 51.8 % (33.0-51.0); Hemoglobin 15.3 g/dL (11.5-16.0); IMMATURE GRAN ABSOLUTE AUTO 0.03 K/mm3 (0.00-0.10); IMMATURE GRAN PERCENT AUTO 0 % (0-1); LYMPHOCYTES PERCENT AUTO 19 % (21-46); MONOCYTES ABSOLUTE AUTO 0.63 K/mm3 (0.16-1.47); MONOCYTES PERCENT AUTO 6 % (4-13); Mean Corpuscular HGB 24.6 pg (26.0-34.0); Mean Corpuscular HGB Conc 29.5 g/dL (31.5-36.5); Mean Corpuscular Volume 83 fL (80-100); Mean Platelet Volume 11.3 fL (9.1-12.4); NEUTROPHILS PERCENT AUTO 73 % (41-73); Platelet Count 356 K/mm3 (150-400); RDW Coefficient Variation 17.8 % (11.7-14.2); Red Blood Cell Count 6.22 M/mm3 (3.80-5.20); White Blood Cell Count 10.16 K/mm3 (4.00-11.30)
[2021-09-30 05:07] LABS: Albumin, Blood 2.6 g/dL (3.4-5.0); Albumin/Globulin Ratio 0.6 (0.8-1.8); Bun/Creatinine Ratio 34.5 (12.0-20.0); Calcium, Blood 9.5 mg/dL (8.5-10.1); Creatinine, Blood 1.1 mg/dL (0.40-1.00); Globulin, Blood 4.5 g/dL (2.2-4.0); Potassium, Blood 2.8 mmol/L (3.5-5.5); Total Protein, Blood 7.1 g/dL (6.4-8.2); Troponin I 0.103 ng/mL (0.000-0.040)
[2021-09-30 07:33] LABS: Influenza A, PCR NEGATIVE (NEGATIVE); Influenza B, PCR NEGATIVE (NEGATIVE); Resp Syncytial Virus, PCR NEGATIVE (NEGATIVE); SARS-Cov-2 (COVID-19) PCR, MMC NEGATIVE (NEGATIVE)
--- NOTE | 2021-09-30 17:10 | NUR ---
PT ARRIVED TO ROOM 329 FROM ER VIA GURNEY, SHE WAS ABLE TO STAND AND TRANSFER TO BED, VERY ANXIOUS AND SOB WITH THIS ACTIVITY, ACCOMPANIED BY SPOUSE AND SON, ORIENTED TO ROOM AND CALL SYSTEM. PT CLUTCHING PILLOWS LYING ON HER SIDE, CALL SOARES IN REACH, WILL MONITOR
--- NOTE | 2021-10-01 01:52 | NUR ---
VS: PATIENT SCORED A 4 ON THE VEIWS FOR RR 22 AND HR OF 121. PATIENT IS SOB AT REST AND SAT WAS 85% ON RA. 02 AT 2L NC WAS PLACED. PATIENT IS RESISTANT TO CARE. REFUSING RT NEBULIZER. PATIENT IS MAONING AND REPORTS GENERALIZED PAIN AND IS VERY ANXIOUS BUT REFUSES AND PAIN OR ANXIETY MEDICATION. DR PATINO WAS NOTIFIED OF ABOVE INFORMATION AND ORDER FOR LASIX IV X1 WAS OBTAINED. AT THIS TIME PATIENT HAS VOIDED TWICE SINCE LASIX, UNMEASURED BECAUSE PATIENT VOIDED IN THE GARBAGE CAN.
[2021-10-01 04:54] LABS: BASOPHILS ABSOLUTE AUTO 0.07 K/mm3 (0.00-0.23); BASOPHILS PERCENT AUTO 1 % (0-2); EOSINOPHILS ABSOLUTE AUTO 0.13 K/mm3 (0.00-0.68); EOSINOPHILS PERCENT AUTO 1 % (0-6); Hematocrit 49.4 % (33.0-51.0); Hemoglobin 15.1 g/dL (11.5-16.0); IMMATURE GRAN ABSOLUTE AUTO 0.05 K/mm3 (0.00-0.10); IMMATURE GRAN PERCENT AUTO 0 % (0-1); LYMPHOCYTES ABSOLUTE AUTO 2.25 K/mm3 (0.84-5.20); LYMPHOCYTES PERCENT AUTO 20 % (21-46); MONOCYTES ABSOLUTE AUTO 0.73 K/mm3 (0.16-1.47); MONOCYTES PERCENT AUTO 6 % (4-13); Mean Corpuscular HGB 24.8 pg (26.0-34.0); Mean Corpuscular HGB Conc 30.6 g/dL (31.5-36.5); Mean Corpuscular Volume 81 fL (80-100); Mean Platelet Volume 11.6 fL (9.1-12.4); NEUTROPHILS ABSOLUTE AUTO 8.18 K/mm3 (1.96-9.15); NEUTROPHILS PERCENT AUTO 72 % (41-73); Platelet Count 366 K/mm3 (150-400); RDW Coefficient Variation 17.2 % (11.7-14.2); RDW Standard Deviation 49.2 fL (35.1-46.3); Red Blood Cell Count 6.08 M/mm3 (3.80-5.20); White Blood Cell Count 11.41 K/mm3 (4.00-11.30)
[2021-10-01 06:03] LABS: Bun/Creatinine Ratio 35.1 (12.0-20.0); Calcium, Blood 9.2 mg/dL (8.5-10.1); Creatinine, Blood 1.31 mg/dL (0.40-1.00); Potassium, Blood 3.7 mmol/L (3.5-5.5)
--- NOTE | 2021-10-01 18:01 | NUR ---
SUMMARY PT SITTING UP IN BED EATING DINNER, PT HAS BEEN VERY RESTLESS AND ANXIOUS T/O THE DAY, PT REMAINS ON OXYGEN, VSS, SPOUSE IN TO VISIT, PT UP INDEP TO THE BSC TO VOID FREQUENTLY, TELE COMES OFF FREQUENTLY, WILL CONT TO MONITOR
--- NOTE | 2021-10-02 02:56 | NUR ---
FALL PATIENT WAS FOUND ON HER KNEES NEXT TO THE BED. PATIENT REPORTS HITTING HER HEAD. VSS, NO APPARENT INJURY. PATIENT WAS ASISTED TO THE BSC TO VOID AND THEN BACK TO BED. PATIENT WAS ABLE TO STAND ON HER OWN. BED ALARM IS ON.
--- NOTE | 2021-10-02 03:34 | NUR ---
FALL: DR OSBORNE IS NOTIFIED OF FALL. VSS, NO NEUROLOGICAL CHANGES. LINES ARE A INCREASING FALL RISK. CONTINUE TO MONITOR. TELEMETRY IS DC'S.
--- NOTE | 2021-10-02 04:05 | NUR ---
LATE ENTRY FOR 10/01/21-2199: PATIENT IS VERY ANXIOUS AND RESTLESS IN THE BED. MD IS NOTIFIED AND ORDER FOR XANAX X 1 NOW WAS OBTAINED AND MEDICATION WAS GIVEN. PATIENT IS REFUSING GOWN. 02 TUBBING AND TELI LINES ARE TANGLED AND TELI NEEDS CONSTANT ADJUSTING.
--- NOTE | 2021-10-02 06:14 | NUR ---
SHIFT SUMMARY: SON WAS ALLOWED TO STAY THE NIGHT DUE TO CALMING AFFECT ON MOTHER. AT ONE POINT THE SON LEFT THE UNIT AND CAME BACK WITH ANOTHER PERSON. NEITHER HAD MASKS ON. THE SON AND FRIEND WERE ASK TO LEAVE THE UNIT. HE DID RETURN TO GET HIS PHONE AND THEN LEFT. PATIENT CONTINUES TO BE RESTLESS, ONLY SLEEPING FOR SHORT PERIODS OF TIME. REQUIRING RT TREATMENT Q 4 HOURS. DOCUMENTATION SPEC STAYS OUTSIDE OF PATIENT ROOM FOR CLOSER OBSERVATION. PATIENT HAS BEEN CALM WITHOUT SON IN THE ROOM THIS SHIFT.
[2021-10-02 07:20] LABS: BASOPHILS ABSOLUTE AUTO 0.08 K/mm3 (0.00-0.23); BASOPHILS PERCENT AUTO 1 % (0-2); EOSINOPHILS ABSOLUTE AUTO 0.28 K/mm3 (0.00-0.68); EOSINOPHILS PERCENT AUTO 3 % (0-6); Hematocrit 48.3 % (33.0-51.0); Hemoglobin 14.6 g/dL (11.5-16.0); IMMATURE GRAN ABSOLUTE AUTO 0.03 K/mm3 (0.00-0.10); IMMATURE GRAN PERCENT AUTO 0 % (0-1); LYMPHOCYTES ABSOLUTE AUTO 2.25 K/mm3 (0.84-5.20); LYMPHOCYTES PERCENT AUTO 22 % (21-46); MONOCYTES ABSOLUTE AUTO 0.64 K/mm3 (0.16-1.47); MONOCYTES PERCENT AUTO 6 % (4-13); Mean Corpuscular HGB 24.7 pg (26.0-34.0); Mean Corpuscular HGB Conc 30.2 g/dL (31.5-36.5); Mean Corpuscular Volume 82 fL (80-100); Mean Platelet Volume 11.7 fL (9.1-12.4); NEUTROPHILS ABSOLUTE AUTO 6.97 K/mm3 (1.96-9.15); NEUTROPHILS PERCENT AUTO 68 % (41-73); Platelet Count 350 K/mm3 (150-400); RDW Standard Deviation 49.1 fL (35.1-46.3); Red Blood Cell Count 5.91 M/mm3 (3.80-5.20); White Blood Cell Count 10.25 K/mm3 (4.00-11.30)
[2021-10-02 07:22] LABS: Calcium, Blood 8.3 mg/dL (8.5-10.1); Creatinine, Blood 1.78 mg/dL (0.40-1.00); Potassium, Blood 4.6 mmol/L (3.5-5.5)
--- NOTE | 2021-10-02 18:50 | NUR ---
SHIFT SUMMARY- PT SBP WAS 90 THIS MORNING, SPOKE TO , THEY ARE AWARE MORNING BP MEDS WERE HELD. NEW PARAMETERS RECIEVED. PT HAS DECLINED SOME PROCEDURES AND SOME CARE. WHEN STAFF SPOKE TO HER ABOUT THE ECHO SHE REFUSED YESTERDAY THE PT STATED SHE WOULD DO IT TODAY. REORDERED THE TEST. CALLED DOWN TO ECHO LAB AND SPOKE TO THE STAFF THERE. REQUESTED THAT THEY CALL THIS RN IF SHE REFUSES AGAIN SO SHE CAN BE REMINDED OF THE IMPORTANCE OF THE TEST. PT HAS CONSTANT SOB COMPLAINTS AND HAS Q1 BREATHING Tx NEEDED.
--- NOTE | 2021-10-02 20:19 | NUR ---
NOTE DUE TO ACCOUNT BEING LOCKED CURRENTLY BY ANOTHER THERAPIST DUE TO TECH ERROR. TECH SUPPORT AWARE AND WORKING TO RESOLVE PER REPORT. PT FOUND ON ROOM AIR, INCR WOB NOTED. PT RETURNED TO NASAL CANNULA THAT SHE HAD PULLED OFF AT 2 LPM. SP02 95%. GOOD STRONG NONPROD COUGH NOTED. HR 90, RR 24. FINE CRACKLES NOTED IN BBS. SOME SCATTERED WHEEZING NOTED WELL, IMPROV POST NEB. ARLEY NOTED. WHEN I ADVISED PT I WOULD RETURN LATER FOR NEXT NEB, SHE STATED "I JUST WANT TO SLEEP PLEASE". WILL CONTINUE TO MONITOR AND ASSESS ON ROUNDS
[2021-10-03 06:08] LABS: BASOPHILS ABSOLUTE AUTO 0.05 K/mm3 (0.00-0.23); BASOPHILS PERCENT AUTO 1 % (0-2); EOSINOPHILS ABSOLUTE AUTO 0.04 K/mm3 (0.00-0.68); EOSINOPHILS PERCENT AUTO 0 % (0-6); Hematocrit 48.9 % (33.0-51.0); Hemoglobin 14.9 g/dL (11.5-16.0); IMMATURE GRAN ABSOLUTE AUTO 0.05 K/mm3 (0.00-0.10); IMMATURE GRAN PERCENT AUTO 1 % (0-1); LYMPHOCYTES ABSOLUTE AUTO 1.84 K/mm3 (0.84-5.20); LYMPHOCYTES PERCENT AUTO 17 % (21-46); MONOCYTES ABSOLUTE AUTO 0.68 K/mm3 (0.16-1.47); MONOCYTES PERCENT AUTO 6 % (4-13); Mean Corpuscular HGB 24.4 pg (26.0-34.0); Mean Corpuscular HGB Conc 30.5 g/dL (31.5-36.5); Mean Corpuscular Volume 80 fL (80-100); Mean Platelet Volume 11.6 fL (9.1-12.4); NEUTROPHILS ABSOLUTE AUTO 8.19 K/mm3 (1.96-9.15); NEUTROPHILS PERCENT AUTO 75 % (41-73); Platelet Count 395 K/mm3 (150-400); RDW Coefficient Variation 17.9 % (11.7-14.2); RDW Standard Deviation 47.8 fL (35.1-46.3); Red Blood Cell Count 6.11 M/mm3 (3.80-5.20); White Blood Cell Count 10.85 K/mm3 (4.00-11.30)
[2021-10-03 06:31] LABS: Bun/Creatinine Ratio 43.7 (12.0-20.0); Calcium, Blood 8.8 mg/dL (8.5-10.1); Creatinine, Blood 1.74 mg/dL (0.40-1.00); Potassium, Blood 4.1 mmol/L (3.5-5.5)
--- NOTE | 2021-10-03 07:07 | NUR ---
SHIFT SUMMARY PT IS A 56 Y/O FEMALE, ADMITTED FOR ACUTE HYPOXEMIC RESPIRATORY FAILURE. SHE IS A&O X 4, ANXIOUS AND DEMANDING WITH STAFF AT TIMES. PT THREATENED TO LEAVE AMA DURING THE NIGHT WHEN PT'S SO WAS NOT ALLOWED TO STAY THE NIGHT, BUT EVENTUALLY CHANGED HER MIND. PT REPORTED SOB THROUGHOUT THE NIGHT, AND REQUESTED FREQUENT PRN BREATHING TX. VITAL SIGNS STABLE. PT ON 2L VIA NC, SATTING > 90%. NO OTHER ACUTE CHANGES IN PT CONDITION NOTED DURING THE NIGHT. REPORT GIVEN TO ONCOMING RN.
--- NOTE | 2021-10-03 07:54 | NUR ---
SPOKE TO DR BRAR- PT HAS A NO IV ACCESS ORDER FROM YESTERDAY WHEN SHE REMOVED HER PREVIOUS IV. NEW ORDER FOR ABX IS IV. ORDER RECIEVED TO HOLD THE IV ABX THEY WILL PLACE A NEW ORDER FOR ORAL ABX.
--- NOTE | 2021-10-03 14:34 | NUR ---
SPOKE TO PT ABOUT THE NEED FOR HER TO COOPERATE WITH STAFF AND BE WILLING TO DO AT LEAST SOME OF THE ASSESSMENTS NEEDED. PT AGREED TO WORK WITH PHYSICAL THERAPY, HOWEVER SHE DECLINED BOTH PHYSICAL THERAPISTS THAT ATTEMPTED TO SEE HER. RT CAME TO DO A HOME O2 EVAL AND THE PT AGAIN WANTED TO DECLINE. RN ENCOURAGED HER TO DO THE EVAL AND REMINDED HER OF THE EARLIER CONVERSATION. PT AGREED AND DID THE HOME O2 EVAL.
[2021-10-03] MEDS ORDERED: CLOP75 PO (14:58)
[2021-10-03] MEDS ORDERED: CARV25 PO (14:58)
[2021-10-03] MEDS ORDERED: VISBIOME 112.51 EACH PO (14:59)
[2021-10-03] MEDS ORDERED: SULFAMETHOXAZO1 EACH PO (14:59)
--- NOTE | 2021-10-03 15:54 | NUR ---
CALLED PT SO- PT STATED HE COULD NOT PICK HER UP BECAUSE HE WAS WORKING, WHEN ASKED WHAT TIME HE GETS OFF SHE STATED 9 OR 10. CALLED PT SO HE IS ON HIS WAY TO COME GET HER NOW. HE IS AWARE HER MEDS WERE FAXED TO [facility], PT HAS RECENTLY SWITCHED TO [facility] HOWEVER FOR TODAYS SCRIPT [facility] IS A GOOD PHARMACY. HE STATED HE HAS NOT BEEN ABLE TO DO LAUNDRY YET, SO THE PT WILL BE SENT HOME IN SCRUB PANTS AND A GOWN, SHE IS REFUSING THE SCRUB TOP.
--- NOTE | 2021-10-03 15:58 | NUR ---
PT HAS VOIDED SEVERAL TIMES HOWEVER EACH TIME A SAMPLE COULD NOT BE OBTAINED, FOR ONE REASON OR ANOTHER. ONE TIME THERE WAS URINE IN THE TOILET BUT THE HAT IN THE TOILET WAS FULL OF WHAT APPEARED TO BE WATER. ANOTHER TIME THE HAT WAS REMOVED FROM THE TOILET, ETC.
--- NOTE | 2021-10-03 16:53 | NUR ---
DISCHARGE NOTE- PT WAS GIVEN VERBAL AND WRITTEN DISCHARGE INSTRUCTIONS AND ACKNOWLEDGED UNDERSTANDING OF THEM. PT WAS BREATHING HARD, SHE DID DURRING THE HOME O2 EVAL, WHERE HER SATS MAINTAINED AND IT WAS DETERMINED SHE DID NOT NEED O2. ONCE AT REST IN THE WHEEL CHAIR BREATHING RETURNED TO HER NORMAL. PT HAD DECLINED BREATHING Tx AFTER THE HOME O2 EVAL AND SHE DECLINED STATING SHE DOES NOT NEED ONE. PT WAS ESCORTED OUT VIA WC BY THE GUEST EXPERIENCE REPRESENTATIVE. PT DID NOT HAVE ANY INCREASED DISTRESS AT THE TIME OF DISCHARGE.
--- NOTE | 2021-10-06 10:32 | NUR ---
Received referral from nurse hospice care sales consultant ([facility]) on 10/02/2021. Patient was admitted on 10/02/2021 due to acute hypoxemic respiratory failure. Patient discharged 10/03/2021 with orders for home health and elected [facility]. Review of patient's records today- 10/06/2021 indicate that patient re-admitted to [facility] on 10/03/2021 due to acute hypoxemic respiratory failure. No further interventions required. Maren Trammell Referral Liaison
== END 2021-10-03 16:49 | disposition home health service (06) | DRG 291 ==
LOC: ER 03:56 → ERHOLD 03:57 → ER 08:42 → MEDS 17:10
PROVIDERS: Family Medicine; Student in an Organized Health Care Education/Training Program; ADMIT Hospitalist
DX: I11.0 Hypertensive heart disease with heart failure (principal); J96.01 Acute respiratory failure with hypoxia; I50.23 Acute on chronic systolic (congestive) heart failure; N17.9 Acute kidney failure, unspecified; R65.10 Systemic inflammatory response syndrome (SIRS) of non-infectious origin without acute organ dysfunction; N39.0 Urinary tract infection, site not specified; Z20.822 Contact with and (suspected) exposure to COVID-19; E87.6 Hypokalemia; I42.9 Cardiomyopathy, unspecified; Z23 Encounter for immunization; I25.10 Atherosclerotic heart disease of native coronary artery without angina pectoris; J44.9 Chronic obstructive pulmonary disease, unspecified; E11.9 Type 2 diabetes mellitus without complications; Z79.82 Long term (current) use of aspirin; Z79.899 Other long term (current) drug therapy; Z87.891 Personal history of nicotine dependence; Z95.5 Presence of coronary angioplasty implant and graft
CPT/HCPCS: 0241U; 36415; 71046; 80048; 80053; 82947; 83735; 83880; 84132; 84145; 84484; 85025; 87040; 87077; 87086; 87186; 90686; 93005; 93010; 94640; 94760; 94761; 94762; 96365; 96372; 96375; 96376; 97166; 97530; 97535; 99285-25; A9270; G0008; G0378; J1644; J1815; J1940; J2060; J3480

== ENCOUNTER 2021-10-03 20:07 | Observation (INO) | payer OTHER ==
[~2021-10-03] VITALS: Ht 167.6 cm; Wt 97.7 kg
[~2021-10-03 20:07] MED LIST changes: +SULFAMETHOXAZO1 EACH PO; +VISBIOME 112.51 EACH PO
[2021-10-03 21:13] LABS: BASOPHILS ABSOLUTE AUTO 0.06 K/mm3 (0.00-0.23); BASOPHILS PERCENT AUTO 1 % (0-2); EOSINOPHILS PERCENT AUTO 1 % (0-6); Hematocrit 48.5 % (33.0-51.0); Hemoglobin 14.8 g/dL (11.5-16.0); IMMATURE GRAN ABSOLUTE AUTO 0.04 K/mm3 (0.00-0.10); IMMATURE GRAN PERCENT AUTO 0 % (0-1); LYMPHOCYTES ABSOLUTE AUTO 1.41 K/mm3 (0.84-5.20); LYMPHOCYTES PERCENT AUTO 13 % (21-46); MONOCYTES ABSOLUTE AUTO 0.75 K/mm3 (0.16-1.47); MONOCYTES PERCENT AUTO 7 % (4-13); Mean Corpuscular HGB 24.5 pg (26.0-34.0); Mean Corpuscular HGB Conc 30.5 g/dL (31.5-36.5); Mean Corpuscular Volume 80 fL (80-100); Mean Platelet Volume 11.6 fL (9.1-12.4); NEUTROPHILS ABSOLUTE AUTO 8.23 K/mm3 (1.96-9.15); NEUTROPHILS PERCENT AUTO 78 % (41-73); Platelet Count 357 K/mm3 (150-400); RDW Coefficient Variation 16.7 % (11.7-14.2); RDW Standard Deviation 47.8 fL (35.1-46.3); Red Blood Cell Count 6.04 M/mm3 (3.80-5.20); White Blood Cell Count 10.59 K/mm3 (4.00-11.30)
[2021-10-03 21:40] LABS: Albumin, Blood 2.2 g/dL (3.4-5.0); Albumin/Globulin Ratio 0.6 (0.8-1.8); Bilirubin, Total 0.8 mg/dL (0.1-1.0); Bun/Creatinine Ratio 50.3 (12.0-20.0); Calcium, Blood 8.6 mg/dL (8.5-10.1); Creatinine, Blood 1.55 mg/dL (0.40-1.00); Globulin, Blood 3.9 g/dL (2.2-4.0); Potassium, Blood 3.7 mmol/L (3.5-5.5); Total Protein, Blood 6.1 g/dL (6.4-8.2)
[2021-10-04 04:55] LABS: BASOPHILS ABSOLUTE AUTO 0.04 K/mm3 (0.00-0.23); BASOPHILS PERCENT AUTO 0 % (0-2); EOSINOPHILS ABSOLUTE AUTO 0.06 K/mm3 (0.00-0.68); EOSINOPHILS PERCENT AUTO 1 % (0-6); Hematocrit 45.4 % (33.0-51.0); Hemoglobin 13.9 g/dL (11.5-16.0); IMMATURE GRAN ABSOLUTE AUTO 0.05 K/mm3 (0.00-0.10); IMMATURE GRAN PERCENT AUTO 0 % (0-1); LYMPHOCYTES ABSOLUTE AUTO 1.79 K/mm3 (0.84-5.20); LYMPHOCYTES PERCENT AUTO 15 % (21-46); MONOCYTES ABSOLUTE AUTO 0.85 K/mm3 (0.16-1.47); MONOCYTES PERCENT AUTO 7 % (4-13); Mean Corpuscular HGB 24.9 pg (26.0-34.0); Mean Corpuscular HGB Conc 30.6 g/dL (31.5-36.5); Mean Corpuscular Volume 81 fL (80-100); Mean Platelet Volume 11.5 fL (9.1-12.4); NEUTROPHILS ABSOLUTE AUTO 9.34 K/mm3 (1.96-9.15); NEUTROPHILS PERCENT AUTO 77 % (41-73); Platelet Count 391 K/mm3 (150-400); RDW Coefficient Variation 16.8 % (11.7-14.2); RDW Standard Deviation 48.6 fL (35.1-46.3); Red Blood Cell Count 5.59 M/mm3 (3.80-5.20); White Blood Cell Count 12.13 K/mm3 (4.00-11.30)
--- NOTE | 2021-10-04 05:22 | NUR ---
SHIFT SUMMARY PT ADMITTED FROM ED FOR ACUTE RESP FAILURE. PT IS A READMIT FROM TODAY. SHE DC'D HOME FROM MED FLOOR AND CAME BACK TO THE ED WITHIN AN HOUR. SHE WAS NOT DC'D HOME WITH O2. SHE IS CURRENLY ON 4 LITERS O2 VIA NC AND SATTING IN THE MID 90'S. SHE EXPERIENCES ANXIETY RELATED TO HER DYSPNEA. DYSPNEA IS POSSIBLY RELATED TO CHF EXAC. VSS. WILL REPORT TO NURY SALAZAR.
[2021-10-04 06:05] LABS: Albumin, Blood 2.2 g/dL (3.4-5.0); Albumin/Globulin Ratio 0.6 (0.8-1.8); Bilirubin, Total 0.8 mg/dL (0.1-1.0); Bun/Creatinine Ratio 52.7 (12.0-20.0); Calcium, Blood 8.6 mg/dL (8.5-10.1); Creatinine, Blood 1.46 mg/dL (0.40-1.00); Globulin, Blood 3.4 g/dL (2.2-4.0); Potassium, Blood 4.3 mmol/L (3.5-5.5); Total Protein, Blood 5.6 g/dL (6.4-8.2)
[2021-10-04 15:53] LABS: U Amphetamine Screen Not Detected; U Barbituate Screen Not Detected; U Benzodiazapine Screen DETECTED; U Buprenorphine Screen Not Detected; U Cannabinoids Screen Not Detected; U Cocaine Screen Not Detected; U Methadone Screen Not Detected; U Methamphetamine Screen Not Detected; U Opiates Screen Not Detected; U Oxycodone Screen Not Detected; U Phencyclidine Screen Not Detected; U Propoxyphene Screen Not Detected
--- NOTE | 2021-10-04 19:31 | NUR ---
SHIFT SUMMARY PATIENT AAOX4. PT IS DROWSY AND LETHARGIC BUT EASILY AROUSED UPON VERBAL OR TACTILE STIMULI. FALLS BACK TO SLEEP WHEN NOT SPEAKING. APPEARS TO BE VERY ANXIOUS AND UNABLE TO CATCH BREATH AND C/O SOB. NOTIFIED DR. BRENNER AND ATTENDING. BOTH CAME TO UNIT TO EVAL PATIENT AND PUT EYES ON HER. EXPLAINED R/T ANXIETY AND NOT HER BREATHING AND NOT MUCH THAT THEY CAN DO TO HELP R//T HER HX OF DRUG USE AND MED TOLERANCE. VSS. O2 SATS 95% ON 4L BNC. DID HUGO RT FOR A BREATHING TREATMENT MULTIPLE TIMES TODAY. CALLED AND RECEIVED ORDER FOR ATARAX DOSE FOR SOME PANIC RELIEF. IT DID SEEM TO HELP SLIGHTLY BUT BACK TO BASELINE WITHIN 3 HOURS. GOT AND SENT TOXICOLOGY UDS TO LAB FROM A IN AND OUT CATH R/T PATIENT UNABLE TO URINATE ON HER OWN. EXPLAINED CHF EXUCATION AND 1500 CC FLUID RESTRICTION WELL SODIUM CONTROLLED DIET. WILL CONTINUE TO MONITOR IN CARE.
--- NOTE | 2021-10-04 21:43 | NUR ---
PHYSICIAN COMMUNICATION CONTACTED FLY FRAME TENDER PHYSICIAN, SHOBHA ALEXANDER, TO NOTIFY HIM THAT THE PATIENT IS REFUSING ALL CARE WHICH INCLUDES TELE, MEDS, O2, AND ASSESSMENTS. ALSO NOTIFIED HIM THAT THE PATIENT IS REQUESTING TO LEAVE THE HOSPITAL. NO ORDERS GIVEN.
--- NOTE | 2021-10-04 22:16 | NUR ---
PHYSICIAN COMMUNICATION CONTACTED HVAC OPERATIONS TECHNICIAN PHYSICIAN, SHOBHA ALEXANDER, TO NOTIFY HIM THAT THE PATIENT ATTEMPTED TO WALK OUT OF THE HOSPITAL BECAUSE ACCORDING TO THE PATIENT SHE COULDN'T SLEEP AND THAT SHE AGREED TO STAY IF SHE COULD BE HELPED TO SLEEP. ALSO INFORMED HIM OF THE PATIENT'S HISTORY OF DRUG ABUSE. SHOBHA ALEXANDER ORDERED A ONE TIME DOSE OF 50 MG TRAZODONE PO.
--- NOTE | 2021-10-05 05:30 | NUR ---
SHIFT SUMMARY PATIENT ALERT AND ORIENTED. WAS ANXIOUS WITH ERRATIC BEHAVIOR OVERNIGHT (SEE PREVIOUS NOTES). WAS ABLE TO PLACE TELEMETRY BACK ON PATIENT BUT SHE CONTINUED TO INTERMITENTLY REFUSED TO WEAR OXYGEN AND KEPT TAKING HER CONTINUOUS BIOX MONITOR OFF. SHE HAD NO COMPLAINTS OF PAIN. MEDICATED PER EMAR FOR SLEEP. GETS SHORT OF BREATH UPON EXERTION. BED IN LOWEST POSITION WITH WHEELS LOCKED. CALL LIGHT WITHIN REACH. REPORT GIVEN TO ONCOMING RN.
[2021-10-05 08:44] LABS: Bun/Creatinine Ratio 48.8 (12.0-20.0); Calcium, Blood 8.5 mg/dL (8.5-10.1); Creatinine, Blood 1.6 mg/dL (0.40-1.00); Potassium, Blood 3.9 mmol/L (3.5-5.5)
--- NOTE | 2021-10-05 17:39 | NUR ---
SHIFT SUMMARY PT IS AAOX4, VERY ANXIOUS AND HAD EPISODES OF IRRITABILITY NOTED THIS SHIFT. PT HAS EPISODES OF BEING UNCOOPERATIVE TO CARE, PT WOULD REPEATEDLY TAKE OFF NASAL CANNULA AND CONT BIOX MONITOR. DR. RUSSO AWARE OF PATIENT'S BEHAVIOR. EXPLORED PATIENT'S FEELINGS AND READINESS TOWARDS DISCHARGE THIS SHIFT, PT REPORTED THAT SHE IS NOT READY TO DISCHARGE TODAY D/T HER CAREGIVERS AVAILABILITY. NOTIFIED DR. RUSSO. PT HAD NO C/O PAIN OR ANY OTHER DISCOMFORT THIS SHIFT. PT CURRENTLY ON 2LPM O2 SATTING 92-95%. OFFERED SUPPORT AND CALM REASSURANCE TO PATIENT DURING PERIODS OF ANXIETY. PT DENIES FEELINGS OF DEPRESSION. BED AT LOWEST POSITION. CALL LIGHT WITHIN REACH.
--- NOTE | 2021-10-06 00:06 | NUR ---
PHYSICIAN COMMUNICATION CONTACTED MIXER WHIPPED TOPPING PHYSICIAN, SHOBHA ALEXANDER, TO NOTIFY HIM THAT THE PATIENT WAS REQUESTING SOMETHING TO HELP HER SLEEP. HE ORDERED 5 MG MELATONIN.
--- NOTE | 2021-10-06 05:33 | NUR ---
SHIFT SUMMARY PATIENT ALERT AND ORIENTED. MEDICATED PER EMAR FOR SLEEP. HAD NO COMPLAINTS OF PAIN, REPORTED HAVING SHORTNESS OF BREATH AND DIFFICULTY BREATHING. PATIENT STATED THAT SHE WAS UNABLE TO SLEEP AND REQUESTED STAFF TO CALL A CAB SO THAT SHE COULD LEAVE. SHE HAS NOT ATTEMPTED TO LEAVE OF YET THIS MORNING.
[2021-10-06 11:02] LABS: Calcium, Blood 8.9 mg/dL (8.5-10.1); Creatinine, Blood 1.86 mg/dL (0.40-1.00); Potassium, Blood 3.9 mmol/L (3.5-5.5)
[2021-10-06] MEDS ORDERED: BUSP5 PO (14:07)
[2021-10-06] MEDS ORDERED: HYDHCL25 PO (14:08)
--- NOTE | 2021-10-06 15:02 | NUR ---
DISCHARGE SUMMARY PT DISCHARGE THIS SHIFT AT APPROXIMATELY 1448. PT IS AAOX4, ABLE TO MAKE NEEDS KNOWN. PT VERBALIZED UNDERSTANDING OF DISCHARGE INSTRUCTIONS AND EDUCATION. NO COMPLAINTS, ISSUES, OR CONCERNS NOTED FROM PATIENT PRIOR TO DISCHARGE. NO C/O CP, SOB, OR N/V/D. RESPS E/U IN RA, SATTING 95% IN RA. PT WAS ABLE TO TRANSFER INDEPENDENTLY FROM BED TO WHEELCHAIR PRIOR TO DISCHARGE. PT REQUESTED TO WAIT FOR HER AT THE PATIENT ENTRANCE, PT TRANSPORTED VIA WHEELCHAIR AT PATIENT ENTRANCE. DISCHARGE PAPERWORK GIVEN TO PT UPON DISCHARGE.
== END 2021-10-06 14:59 | disposition home or self-care (01) ==
LOC: ER 20:07 → ERHOLD 10-04 00:09 → MEDS 10-04 00:09 → ER 10-04 00:09 → MEDS 10-04 00:09 → ERHOLD 10-04 02:03 → MEDS 10-04 02:03 → ERHOLD 10-04 07:42 → MEDS 10-04 08:19 → ENPENDDIS 10-06 13:13 → MEDS 10-06 14:59
PROVIDERS: Emergency Medicine; Hospitalist; Student in an Organized Health Care Education/Training Program; ADMIT Internal Medicine
DX: J96.01 Acute respiratory failure with hypoxia (principal); N17.9 Acute kidney failure, unspecified; I13.0 Hypertensive heart and chronic kidney disease with heart failure and stage 1 through stage 4 chronic kidney disease, or unspecified chronic kidney disease; E11.22 Type 2 diabetes mellitus with diabetic chronic kidney disease; I50.23 Acute on chronic systolic (congestive) heart failure; N18.9 Chronic kidney disease, unspecified; E11.65 Type 2 diabetes mellitus with hyperglycemia; F41.9 Anxiety disorder, unspecified; I25.10 Atherosclerotic heart disease of native coronary artery without angina pectoris; I87.2 Venous insufficiency (chronic) (peripheral); J44.9 Chronic obstructive pulmonary disease, unspecified; I31.8 Other specified diseases of pericardium; F15.11 Other stimulant abuse, in remission; N39.0 Urinary tract infection, site not specified; B96.20 Unspecified Escherichia coli [E. coli] as the cause of diseases classified elsewhere; L53.9 Erythematous condition, unspecified; E66.01 Morbid (severe) obesity due to excess calories; Z68.29 Body mass index [BMI] 29.0-29.9, adult; Z91.14 Patient's other noncompliance with medication regimen; Z87.891 Personal history of nicotine dependence; Z95.5 Presence of coronary angioplasty implant and graft
CPT/HCPCS: 36415; 71045; 80048; 80053; 82947; 83036; 83880; 85025; 85379; 93005; 93010; 93306; 94640; 94761; 94762; 96372; 97110; 97161; 99285-25; A9270; G0378; J1650